=== PATIENT | male | born 1990 | race American Indian/Alaskan Native ===

== ENCOUNTER 2016-07-26 13:14 | Inpatient (IN) | payer OTHER ==
[2016-07-26] MEDS ORDERED: TYLENOL PO ONE (13:27)
[2016-07-26 14:00] LABS: Anion Gap 21 mmol/L; BUN/Creatinine Ratio 14.44; Blood Urea Nitrogen 13 mg/dL (9-20); Calcium 8.2 mg/dL (8.4-10.2); Carbon Dioxide 21 mmol/L (22-30); Chloride 92.7 mmol/L (98-107); Glucose 122 mg/dL (75-100); Potassium 4.5 mmol/L (3.6-5.0); Sodium 130 mmol/L (137-145)
[2016-07-26 14:25] LABS: Hematocrit 40.3 % (35.5-45.6); Hemoglobin 13.4 gm/dl (11.8-15.2); Mean Corpuscular HGB Conc 33 % (32-34); Mean Corpuscular Hemoglobin 27 pg (28-32); Mean Corpuscular Volume 82 fl (84-94); Platelet Count 190 K/mm3 (140-440); Red Cell Distribution Width 14.9 % (13.2-15.2); White Blood Count 18.5 K/mm3 (4.5-11.0)
[2016-07-26] MEDS ORDERED: NACL 0.9% 500 ML 500 ML IV ONE (15:29)
[2016-07-26 15:31] LABS: Basophils % (Manual) 0 % (0.0-1.8); Blastocytes % (Manual) 0 %; Eosinophils % (Manual) 0 % (0.0-4.3)
[2016-07-26 15:32] LABS: Anisocytosis Few; Diff Status Complete
[2016-07-26] MEDS ORDERED: VANCOMYCIN/NS 1 GM/250 ML 1 GM/250 ML BAG IV ONE (16:54)
[2016-07-26] MEDS ORDERED: NACL 0.9% 1000 ML 1,000 ML IV ONE (16:54)
[2016-07-26] MEDS ORDERED: ZOSYN/NS 4.5GM/100ML 4.5 GM/100 ML VIAL IV ONE (16:54)
[2016-07-26] MEDS ORDERED: TORADOL IV ONE (16:55)
[2016-07-26] MEDS ORDERED: MORPHINE IV ONE (16:55)
[2016-07-26] MEDS ORDERED: ZOFRAN IV ONE (16:55)
--- NOTE | 2016-07-26 17:01 | Emergency Department Report ---
ED Fever HPI - General Chief Complaint: Pain General Stated Complaint: BODY ACHES Time Seen by Provider: 07/26/16 16:28 Source: patient Exam Limitations: no limitations - History of Present Illness Initial Comments: 25-year-old male with a past medical history presents to the hospital complaining of fever bodyaches for the past 3-4 days. Patient saw his primary care doctor 2 days ago had a negative flu swab. He continues to have generalized body aches, fevers, and decreased by mouth intake. Yesterday patient developed arthralgias with associated joint redness and swelling which started at his knees but now involves his bilateral wrists, hands, ankles, and feet. Patient denies sore throat. Has mild headache but denies neck stiffness. Also denies cough, dull pain, dysuria, diarrhea, sick contacts, recent travel. 2 episodes of vomiting reported the other day no by mouth intake today. Patient denies IV drug abuse. Patient does engage a homosexual sex with unknown HIV status. ED Review of Systems ROS: Stated complaint: BODY ACHES Other details as noted in HPI Comment: All other systems reviewed and negative Other: Constitutional: As per HPI Eyes: No eye pain visual changes ENT: No ear pain or throat pain Neck: Denies pain Respiratory: Denies cough wheezing shortness of breath Cardiovascular: Denies chest pain, palpitations, syncope GI: Denies abdominal pain, nausea, vomiting, diarrhea : Denies dysuria Musculoskeletal: Denies back pain Skin: Denies rash, lesions, erythema Neurologic: Denies numbness, weakness Psychiatric: Denies suicidal ideation, hallucinations ED Past Medical Hx - Past Medical History Previous Medical History?: No - Surgical History Past Surgical History?: No - Social History Smoking Status: Never Smoker Substance Use Type: Non Opiate Pain - Medications Home Medications: Home Medications Medication Instructions Recorded Confirmed Last Taken Type No Known Home Medications [No 07/26/16 07/26/16 Unknown History Reported Home Medications] ED Physical Exam - General Limitations: No Limitations - Other Other exam information: General: No limitations, patient is alert in no acute distress Head exam: Atraumatic, normocephalic Eyes exam: Normal appearance ENT: Moist mucous membrane, normal oropharynx, no thrush or exudates Neck exam: Normal inspection, full range of motion, no meningismus nontender Respiratory exam: Clear to auscultation bilateral, no wheezes, rales, crackles Cardiovascular: Tachycardic regular rhythm Abdomen: Soft, nondistended, and nontender, with normal bowel sounds, no rebound, or guarding Extremity: Pain and swelling with erythematous and warm areas to bilateral wrists/hands, knees, and feet/ankles. Pain with movement Back: Normal Inspection, full range of motion, no tenderness Neurologic: Alert, oriented x3, cranial nerves intact, no motor or sensory deficit Psychiatric: normal affect, normal mood Skin: Redness and warmth and appears to be cellulitic areas to right wrist, left hand, bilateral knees, ankles and hands ED Course Vital Signs 07/26/16 07/26/16 07/26/16 13:19 13:31 15:20 Temperature 102.6 F H 98.5 F Pulse Rate 107 H 89 Respiratory 18 18 16 Rate Blood Pressure 150/96 Blood Pressure 108/60 [Left] O2 Sat by Pulse 99 98 Oximetry 07/26/16 07/26/16 15:37 16:40 Temperature Pulse Rate 108 H Respiratory 16 16 Rate Blood Pressure Blood Pressure 122/74 [Left] O2 Sat by Pulse 98 98 Oximetry - Reevaluation(s) Reevaluation #1: 07/26/16 17:46 Patient received Tylenol and normal saline 500 mL prior to my evaluation. He remains tachycardic and Creason heart rate was sitting up in bed. 1 L normal saline, morphine, Toradol, and Zofran ordered. Patient will be empirically covered with vancomycin and Zosyn. Blood cultures pending ED Medical Decision Making - Lab Data Result diagrams: 07/26/16 13:30 07/26/16 13:30 Lab Results 07/26/16 07/26/16 Range/Units 13:30 13:30 WBC 18.5 H (4.5-11.0) K/mm3 RBC 4.90 (3.65-5.03) M/mm3 Hgb 13.4 (11.8-15.2) gm/dl Hct 40.3 (35.5-45.6) % MCV 82 L (84-94) fl MCH 27 L (28-32) pg MCHC 33 (32-34) % RDW 14.9 (13.2-15.2) % Plt Count 190 (140-440) K/mm3 Lymph % (Auto) Technical Sales Representative Fajardo % (Auto) Technical Sales Representative Eos % (Auto) Technical Sales Representative Baso % (Auto) Technical Sales Representative Lymph # Technical Sales Representative Fajardo # Technical Sales Representative Eos # Technical Sales Representative Baso # Technical Sales Representative Add Manual Diff Complete Total Counted 100 Seg Neutrophils % Technical Sales Representative Seg Neuts % (Manual) 73.0 H (40.0-70.0) % Band Neutrophils % 16.0 % Lymphocytes % (Manual) 6.0 L (13.4-35.0) % Reactive Lymphs % (Man) 0 % Monocytes % (Manual) 5.0 (0.0-7.3) % Eosinophils % (Manual) 0 (0.0-4.3) % Basophils % (Manual) 0 (0.0-1.8) % Metamyelocytes % 0 % Myelocytes % 0 % Promyelocytes % 0 % Blast Cells % 0 % Nucleated RBC % Not Reportable Seg Neutrophils # Technical Sales Representative Seg Neutrophils # Man 13.5 H (1.8-7.7) K/mm3 Band Neutrophils # 3.0 K/mm3 Lymphocytes # (Manual) 1.1 L (1.2-5.4) K/mm3 Abs React Lymphs (Man) 0.0 K/mm3 Monocytes # (Manual) 0.9 H (0.0-0.8) K/mm3 Eosinophils # (Manual) 0.0 (0.0-0.4) K/mm3 Basophils # (Manual) 0.0 (0.0-0.1) K/mm3 Metamyelocytes # 0.0 K/mm3 Myelocytes # 0.0 K/mm3 Promyelocytes # 0.0 K/mm3 Blast Cells # 0.0 K/mm3 WBC Morphology Not Reportable Hypersegmented Neuts Not Reportable Hyposegmented Neuts Not Reportable Hypogranular Neuts Not Reportable Smudge Cells Not Reportable Toxic Granulation Not Reportable Toxic Vacuolation Not Reportable Dohle Bodies Not Reportable Pelger-Huet Anomaly Not Reportable Ginna Rods Not Reportable Platelet Estimate Not Reportable Clumped Platelets Not Reportable Plt Clumps, EDTA Not Reportable Large Platelets Not Reportable Giant Platelets Not Reportable Platelet Satelliting Not Reportable Plt Morphology Comment Not Reportable RBC Morphology Not Reportable Dimorphic RBCs Not Reportable Polychromasia Not Reportable Hypochromasia Not Reportable Poikilocytosis Not Reportable Anisocytosis Few Microcytosis Not Reportable Macrocytosis Not Reportable Spherocytes Not Reportable Pappenheimer Bodies Not Reportable Sickle Cells Not Reportable Target Cells Not Reportable Tear Drop Cells Not Reportable Ovalocytes Not Reportable Helmet Cells Not Reportable [place] Bodies Not Reportable [place] Rings Not Reportable [place] Cells Not Reportable Bite Cells Not Reportable Crenated Cell Not Reportable Elliptocytes Not Reportable Acanthocytes (Spur) Not Reportable Rouleaux Not Reportable Hemoglobin C Crystals Not Reportable Schistocytes Not Reportable Malaria parasites Not Reportable Uriah Bodies Not Reportable Hem Pathologist Commnt No Sodium 130 L (137-145) mmol/L Potassium 4.5 (3.6-5.0) mmol/L Chloride 92.7 L (98-107) mmol/L Carbon Dioxide 21 L (22-30) mmol/L Anion Gap 21 mmol/L BUN 13 (9-20) mg/dL Creatinine 0.9 (0.8-1.5) mg/dL Estimated GFR > 60 ml/min BUN/Creatinine Ratio 14.44 % Glucose 122 H (75-100) mg/dL Calcium 8.2 L (8.4-10.2) mg/dL - EKG Data -: EKG Interpreted by Me (sinsus tach 109) - EKG Data When compared to previous EKG there are: previous EKG unavailable - Radiology Data Radiology results: image reviewed (chest x-ray PA and lateral: No acute findings ) - Medical Decision Making Plan to admit patient to the hospital with empiric coverage with antibiotics. Patient may benefit from infectious disease consult and HIV testing as well. UA urine culture pending at disposition the patient denies urinary symptoms - Differential Diagnosis HIV, septic arthritis, cellulitis, rheumatic fever, septic emboli Critical Care Time: No Critical care attestation.: If time is entered above; I have spent that time in minutes in the direct care of this critically ill patient, excluding procedure time. ED Disposition Clinical Impression: Fever, Cellulitis of multiple sites, Arthralgia Disposition: OP ADMITTED IP TO THIS HOSP Is pt being admited?: Yes Condition: Stable Time of Disposition: 17:00 (Dr perez/hosp)
--- NOTE | 2016-07-26 18:12 | Admit Criteria Form ---
Admission Criteria Documentation: FEVER Clinical Indications for Inpatient Care (Place 'X' for any and all applicable criteria): Ongoing inpatient care may be indicated for fever with ANY ONE of the following[ D] (5)(27)(28)(29)(30)(31): [ ]I. Bacteremia [ ]II. Evidence of significant systemic illness as indicated by ANY ONE of the following: [ ]a) Persistently high temperatures greater than 103.1 degrees F ( 39.5 degrees C) (oral) [ ]b) New-onset hypoxia [ ]c) Hemodynamic instability [ ]d) Mental status changes [ ]e) Decreased urine output due to developing renal insufficiency [ ]f) New focal neurologic deficit (eg, stroke) [ ]g) Seizures [ ]h) Rigors [ ]i) Dehydration or hypovolemia [ ]j) Inadequate oral intake [ ]III. Patient in the immediate postoperative period with ANY ONE of the following (E)(23)(24): [ ]a) Evidence of specific localizing infection requiring ongoing inpatient evaluation or treatment (eg,abscess, severe pneumonia, wound infection ) [ ]b) Known or suspected cause of fever requiring ongoing inpatient evaluation or treatment (eg, DVT) [ ]c) Evidence of malignant hyperthermia (eg, unexplained tachycardia and muscle rigidity after depolarizing muscular blocking agent or inhaled anesthetic agent) [ X]IV. Suspected cause requiring acute care (eg, endocarditis, meningitis) [ ]V. High suspicion of bacteremia as indicated by severe constitutional symptoms in patient at high risk as indicated by ANY ONE of the following: [ ]a) Immunocompromised state [D](22) [ ]b) Age <3 years or >65 years [ ]c) Severe comorbidities (eg, poorly controlled diabetes, severe COPD) [ ]. High suspicion for fungal infection as indicated by ANY ONE of the following (22)(25): [ ]a) Febrile neutropenia (WBC <500/mm3 (0.5 X 109/L)) for >4 days despite broad spectrum antibiotics [ ]b) Imaging findings suggestive of fungal infection [ ]c) Immunocompromised state [ ]d) Immunocompromised patient colonized with Aspergillus species [ ]VII. Evidence of infection of medical devices such as implanted catheters or exposed hardware [ ]VIII. Suspected neuroleptic malignant syndrome as evidenced by ALL of the following (15): [ ]a) Recent use of neuroleptic medication (eg, haloperidol, prochlorperazine, metoclopramide) [ ]b) New-onset muscle rigidity Extended stay beyond goal length of stay for primary condition may be needed until ALL of the following are present(16)(17)(18)(19)(20)(21): [ ]a) Temperature status acceptable as indicated by ANY ONE of the following: [ ]i) Temp <38.1C (100.5 F) (oral) [ ]ii) Temp as expected for disease process and care performable at next level of care [ ]b) Hemodynamic stability [ ]c) Cultures negative or infection identified and under adequate treatment [ ]d) Behavior or mental status abnormalities absent or manageable at lower level of care (Also use Mental Status Change Criteria Form) for further information. [ ]e) Medical comorbidities absent or manageable at a lower level of care The original [facility] content created by [facility] has been revised. The portions of the content which have been revised are identified through the use of italic text or in bold, and [facility] has neither reviewed nor approved the modified material. All other unmodified content is copyright [facility]. Please see references footnoted in the original [facility] [employer] edition 2016 Admission Criteria Met: Yes
[2016-07-26 18:16] LABS: Bacteria,Urine 1+ /HPF (Negative); Bilirubin,Urine NEG (Negative); Blood,Urine MOD (Negative); Ketones,Urine NEG (Negative); Leukocyte Esterase,Urine NEG (Negative); Nitrite,Urine NEG (Negative); Protein,Urine <15 mg/dL mg/dL (Negative)
--- NOTE | 2016-07-26 18:29 | Event Note ---
Date: 07/26/16 See H/p in reports Disseminated Gonococcal Arthritis a strong possibilty Hiv -rule out Diff Dx Rheumatic fever Ceftriaxone and zithromax
[2016-07-26] MEDS ORDERED: ZOFRAN IV PRN (18:30)
[2016-07-26] MEDS ORDERED: MILK OF MAGNESIA PO PRN (18:30)
[2016-07-26] MEDS ORDERED: DULCOLAX PR PRN (18:30)
[2016-07-26] MEDS ORDERED: D5NS 1,000 ML IV ONE (19:10)
[2016-07-26] MEDS ORDERED: LOVENOX SUB-Q ONE (19:10)
[2016-07-26] MEDS: D5NS 1,000 ML IV SCH (19:23)
[2016-07-26] MEDS: LOVENOX SUB-Q SCH (19:23)
[2016-07-26] MEDS ORDERED: PERCOCET 5/325 ONE (19:52)
[2016-07-26] MEDS: PERCOCET 5/325 PO PRN (19:55)
[2016-07-26 20:43] LABS: HIV-1 Antigen p24 Non React (Non React); HIVR-1/2 Ab Non React (Non React)
[2016-07-27] MEDS: ZOSYN/NS 4.5GM/100ML 4.5 GM/100 ML VIAL IV SCH ×2 (00:37→08:20)
[2016-07-27] MEDS: TYLENOL PO PRN ×3 (01:13→14:49)
[2016-07-27] MEDS ORDERED: ZITHROMAX PO ONE (01:39)
--- NOTE | 2016-07-27 06:01 | History and Physical Report ---
CHIEF COMPLAINT: Fever, joint pains, and rash on the feet and wrists. HISTORY OF PRESENT ILLNESS: The patient is a 25-year-old male with no significant past medical history and history of homosexuality, who comes in for fever and body aches for the past 3 to 4 days. The patient had a negative flu swab 2 days ago. The patient continues to have generalized body ache, especially both knees and ankles and fever and also rash on both the wrists and both the dorsum of the feet. The rash is non-itching, papular rash. Fever off and on. Joint pain severe, especially both the knees. The patient states he had an intercourse about 4-5 months ago, no recent intercourse as per the patient. Question of reliability a remote possibility. No vomiting. No diarrhea. No cough. PAST MEDICAL HISTORY: As mentioned, no significant past medical history. PAST SURGICAL HISTORY: None. SOCIAL HISTORY: Does not smoke. Homosexual. FAMILY HISTORY: No hypertension, no diabetes. REVIEW OF SYSTEMS: GENERAL: No limitations. The patient is alert, in no acute distress. CONSTITUTIONAL: Fever present. No chills. No weight loss or weight gain. HEENT: No sore throat, no postnasal drip. CARDIOVASCULAR AND RESPIRATORY: No shortness of breath. No chest pain. No palpitations. GASTROINTESTINAL: No nausea, no vomiting, no diarrhea. GENITOURINARY: No dysuria. MUSCULOSKELETAL: He has joint pains in both the knees and ankles, especially both the knees, more so in the right knee. CENTRAL NERVOUS SYSTEM: No syncope. No seizures. SKIN: Has rash on the feet and the wrists. PSYCHIATRIC: No suicidal or homicidal ideation. A 14-point review of systems done. PHYSICAL EXAMINATION: GENERAL: Young male, cooperative during the examination. Cheerful. VITAL SIGNS: Temperature is 102.6, pulse is 107, respiratory rate 18, blood pressure 150/96. HEENT: Unremarkable. Pupils equal and reactive. NECK: Supple. No lymphadenopathy. No thyromegaly. LUNGS: Clear to auscultation and percussion. Good air entry. CARDIOVASCULAR: S1, S2 heard. No gallop, no murmur, no rub. Apical impulse in left fifth intercostal space in midclavicular line. ABDOMEN: Soft and benign. No hepatosplenomegaly. No guarding, no rigidity. EXTREMITIES: Redness present on both the feet and the hands. Both the knees are swollen. CENTRAL NERVOUS SYSTEM: Alert and oriented x 4. Nonfocal exam. SKIN: Rash on both the wrists, papular rash, erythematous, 5 x 5 cm. Also, on the dorsum of both the feet, 10 x 5 cm. LABORATORY DATA: Significant for white count of 18,500 and H and H is 13.4 and 40.3. Sodium is 130, potassium is 4.5, chloride is 92.7, and BUN and creatinine 13 and 0.9. Urine is negative for any white cells. HIV is nonreactive. ASSESSMENT AND PLAN: 1. 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 Even though the patient denies recent sex, he might have had sex in the last 10 to 15 days. The symptom complex is consistent with disseminated gonococcal arthritis and because of the involvement of both the knees and ankles and also rash on both the wrists, hands, and on the feet, but no dysuria. We will treat it as a disseminated gonococcal arthritis with IV Rocephin and p.o. azithromycin 1 gram x 1. 2. Systemic inflammatory response syndrome a possibility, but I am more in favor of disseminated gonococcal arthritis. The patient is started on Zosyn empirically. Rocephin 2 grams IV piggyback q.24 and azithromycin 1 gram dose x 1 to cover gonococcal arthritis. 3. Infectious Disease consult requested. 4. Hyponatremia, mild. Should correct with IV fluids. 5. Deep venous thrombosis prophylaxis, Lovenox 40 mg subcutaneous daily. JOB# [id number] VSM/NTS
[2016-07-27 07:46] LABS: Basophils % (Auto) 0.3 % (0.0-1.8); Eosinophils % (Auto) 0.2 % (0.0-4.3); Hematocrit 38.8 % (35.5-45.6); Hemoglobin 12.8 gm/dl (11.8-15.2); Mean Corpuscular HGB Conc 33 % (32-34); Mean Corpuscular Hemoglobin 27 pg (28-32); Mean Corpuscular Volume 82 fl (84-94); Platelet Count 162 K/mm3 (140-440); Red Blood Count 4.73 M/mm3 (3.65-5.03); Red Cell Distribution Width 15.2 % (13.2-15.2); White Blood Count 12.9 K/mm3 (4.5-11.0)
[2016-07-27 07:51] LABS: Alanine Aminotransferase 139 units/L (7-56); Albumin 2.5 g/dL (3.9-5); Albumin/Globulin Ratio 0.7 %; Alkaline Phosphatase 131 units/L (35-129); Anion Gap 18 mmol/L; BUN/Creatinine Ratio 14.44; Blood Urea Nitrogen 13 mg/dL (9-20); Calcium 7.6 mg/dL (8.4-10.2); Carbon Dioxide 24 mmol/L (22-30); Chloride 99.6 mmol/L (98-107); Glucose 120 mg/dL (75-100); Potassium 4.3 mmol/L (3.6-5.0); Sodium 137 mmol/L (137-145); Total Protein 5.9 g/dL (6.3-8.2)
--- NOTE | 2016-07-27 08:44 | XRay Report ---
ROUTINE CHEST, TWO VIEWS: HISTORY: Shortness of breath. The trachea, heart, mediastinal contour, lung ruano and bony thorax are unremarkable. IMPRESSION: Unremarkable chest x-ray.
[2016-07-27] MEDS ORDERED: ROCEPHIN/NS 2 GM/100 ML 2 GM/100 ML BAG IV SCH (10:00)
--- NOTE | 2016-07-27 10:42 | Consultation ---
History of Present Illness - Reason for Consult Consult date: 07/27/16 Fever - History of Present Illness Mr. Finch is a 25-year-old man with no significant medical history who presented with fever, joint swelling and diffuse arthralgias. He says he was well until when he developed maild flu-like symptoms. Two days later he began to have pain in his knee and elbow joints. By 07/25/16 he had joint sweeling and presented for evaluation of this. He denies having a sore throat. He denies IVDU or any use of needles. He was febrile here to >102 deg F. A rapid throat swab for strep A was negative. Blood cultures are positive for Gram positive cocci in chains. Rapid screening for HIV is negative. He is receiving Rocephin and Zosyn empirically. ID is consulted for further management. 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 denies: IV drug use Family history: no significant family history Medications and Allergies Allergies Allergy/AdvReac Type Severity Reaction Status Date / Time No Known Allergies Allergy Unverified 07/26/16 13:19 Home Medications Medication Instructions Recorded Confirmed Last Taken Type No Known Home Medications [No 07/26/16 07/26/16 Unknown History Reported Home Medications] Active Meds: Active Medications Acetaminophen (Tylenol) 650 mg PO Q4H PRN PRN Reason: Pain MILD(1-3)/Fever >100.5/REINOSO Last Admin: 07/27/16 08:18 Dose: 650 mg Bisacodyl (Dulcolax) 10 mg CO QDAY PRN PRN Reason: Constipation unrelieved by MOM Enoxaparin Sodium (Lovenox) 40 mg SUB-Q QDAY ADRIEN Last Admin: 07/26/16 19:23 Dose: 40 mg Dextrose/Sodium Chloride (D5ns) 1,000 mls @ 75 mls/hr IV DIRECT ADRIEN Last Admin: 07/26/16 19:23 Dose: 75 mls/hr Piperacillin Sod/Tazobactam Sod (Zosyn/Ns 4.5gm/100ml) 4.5 gm in 100 mls @ 200 mls/hr IV Q8H ADRIEN PRN Reason: Protocol Last Admin: 07/27/16 08:20 Dose: 200 mls/hr Ceftriaxone Sodium (Rocephin/Ns 2 Gm/100 Ml) 2 gm in 100 mls @ 200 mls/hr IV Q24HR ADRIEN PRN Reason: Protocol Magnesium Hydroxide (Milk Of Magnesia) 30 ml PO Q4H PRN PRN Reason: Constipation Ondansetron HCl (Zofran) 4 mg IV Q8H PRN PRN Reason: N/V unrelieved by Reglan Oxycodone/Acetaminophen (Percocet 5/325) 1 tab PO Q6H PRN PRN Reason: Pain, Moderate (4-6) Last Admin: 07/26/16 19:55 Dose: 1 tab Review of Systems All systems: negative Constitutional: fever, chills, malaise Ears, nose, mouth and throat: no sore throat, no swelling in mouth, no headache Cardiovascular: no chest pain, no palpitations Respiratory: no cough, no cough with sputum, no hemoptysis, no shortness of breath, no congestion Gastrointestinal: no abdominal pain, no nausea, no vomiting, no diarrhea, no constipation Genitourinary Male: no dysuria, no hematuria Musculoskeletal: redness of joints, myalgias, limitation of motion Integumentary: no rash, no pruritis Hematologic/Lymphatic: no lymphadenopathy Physical Examination - Constitutional Vitals: Vital Signs Temp Pulse Resp BP Pulse Ox 100.9 F H 96 H 20 109/62 96 07/27/16 07:47 07/27/16 07:47 07/27/16 07:47 07/27/16 07:47 07/27/16 07:47 Temperature -Last 24 Hours Temperature 100.9 F Temperature 98.6 F Temperature 100.0 F Temperature 99.6 F General appearance: Present: no acute distress - EENT Eyes: Absent: scleral icterus, conjunctival injection - Neck Neck: Present: supple - Respiratory Respiratory effort: normal Respiratory: bilateral: CTA, negative: rales, wheezing - Cardiovascular Rhythm: regular Heart Sounds: Present: S1 & S2 - Extremities Extremities: Full ROM Extremity abnormal: edema (local to wrist and knee joints, no flucutance or ballotment) - Abdominal General gastrointestinal: Present: soft, non-tender, non-distended - Integumentary Integumentary: Absent: jaundice, rash - Neurologic Neurologic: moves all extremities Results - Labs CBC & Chem 7: 07/27/16 06:39 07/27/16 06:39 Labs: Abnormal lab results 07/27/16 07/27/16 Range/Units 06:39 06:39 WBC 12.9 H (4.5-11.0) K/mm3 MCV 82 L (84-94) fl MCH 27 L (28-32) pg Lymph % (Auto) 9.0 L (13.4-35.0) % Mclean % (Auto) 7.9 H (0.0-7.3) % Mclean # 1.0 H (0.0-0.8) K/mm3 Seg Neutrophils % 82.6 H (40.0-70.0) % Seg Neutrophils # 10.6 H (1.8-7.7) K/mm3 Glucose 120 H (75-100) mg/dL Calcium 7.6 L (8.4-10.2) mg/dL AST 112 H (5-40) units/L ALT 139 H (7-56) units/L Alkaline Phosphatase 131 H (35-129) units/L Total Protein 5.9 L (6.3-8.2) g/dL Albumin 2.5 L (3.9-5) g/dL Microbiology 07/26/16 13:51 Peripheral/Venous Blood Culture - Preliminary 07/26/16 13:30 Peripheral/Venous Blood Culture - Preliminary 07/26/16 18:46 Throat Group A Streptococcus Rapid Screen - Negative HIV 1/2 Rapid - Negative - Imaging and Cardiology Chest x-ray: report reviewed (unremarkable) Assessment and Plan - Patient Problems (1) Rheumatic fever Current Visit: Yes Status: Acute Plan to address problem: 1. Probable diagnosis. 2. Change antibiotics to Unasyn. 3. Obtain echocardiogram to rule out vegetations or other valvular pathology. (2) Bacteremia due to Gram-positive bacteria Current Visit: Yes Status: Acute Plan to address problem: 1. Per above. 2. Repeat blood culture to document clearance. Unasyn. (3) High risk sexual behavior Current Visit: Yes Status: Acute Plan to address problem: 1. Screen for syphilis, gonorrhea and hepatitides given rash and sexual history.
[2016-07-27] MEDS: LOVENOX SUB-Q SCH (11:36)
[2016-07-27] MEDS: UNASYN/NS 3 GM/100 ML 3 GM/100 ML BAG IV SCH ×3 (12:02→23:55)
[2016-07-27] MEDS: D5NS 1,000 ML IV SCH (12:25)
--- NOTE | 2016-07-27 12:27 | Progress Note ---
Assessment and Plan Assessment and plan: 25-year-old presents with possible infectious arthritis Total Time Spent with Patient (Minutes): 28 - Patient Problems (1) Elevated liver enzymes Current Visit: Yes Status: Acute Plan to address problem: Issue with elevated liver enzymes in the face of infection and fever and possible disseminated bacteremia. We'll need to rule out acute hepatitis as the etiology we'll also obtain ultrasound of the liver. 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 Being treated with Unasyn. Initial workup of HIV strep and flu virus infections have been negative thus far. Blood cultures are still pending we'll also obtain RPR for syphilis and hepatitis panel acute hepatitis panel. We'll treat with NSAIDs for pain control as well as pain medications. Not sure of steroid- induced so warranted at this point (3) Bacteremia due to Gram-positive bacteria Current Visit: Yes Status: Acute Plan to address problem: Treating with Unasyn await culture data. (4) Fever Current Visit: Yes Status: Acute Qualifiers: Fever type: F Encounter type: E (5) High risk sexual behavior Current Visit: Yes Status: Acute Plan to address problem: Educated on safe sex practices (6) Rheumatic fever Current Visit: Yes Status: Acute History Interval history: Patient today states he feels a little better than yesterday. Still has significant joint pain in hands and knees. Fever curve is coming down. Patient able to eat. Discussion with mother and patient at bedside. All questions and concerns answered to their satisfaction. Hospitalist Physical - Constitutional Vitals: Temp Pulse Resp BP Pulse Ox 99.7 F H 80 20 98/51 98 07/27/16 12:00 07/27/16 12:00 07/27/16 12:00 07/27/16 12:07/27/16 12:00 General appearance: Present: no acute distress - EENT Eyes: Present: PERRL, EOM intact ENT: hearing intact, clear oral mucosa, dentition normal - Neck Neck: Present: supple, normal ROM - Respiratory Respiratory effort: normal Respiratory: bilateral: CTA - Cardiovascular Rhythm: regular Heart Sounds: Present: S1 & S2 - Extremities Extremities: no ischemia, pulses intact, pulses symmetrical, No edema Extremity abnormal: other (patient has erythema edema around metacarpal phalangeal joints DIPJ and proximal phalangeal joints on both hands wrist also swelling and erythema in knees and the dorsal aspect of feet painful tender with decreased range of motion) - Abdominal General gastrointestinal: soft, non-tender, non-distended - Integumentary Integumentary: Present: warm, erythema - Psychiatric Psychiatric: appropriate mood/affect, cooperative - Neurologic Neurologic: CNII-XII intact, moves all extremities, gait normal Results - Labs CBC & Chem 7: 07/27/16 06:39 07/27/16 06:39 Labs: Laboratory Last Values WBC 12.9 K/mm3 (4.5-11.0) H 07/27/16 06:39 RBC 4.73 M/mm3 (3.65-5.03) 07/27/16 06:39 Hgb 12.8 gm/dl (11.8-15.2) 07/27/16 06:39 Hct 38.8 % (35.5-45.6) 07/27/16 06:39 MCV 82 fl (84-94) L 07/27/16 06:39 MCH 27 pg (28-32) L 07/27/16 06:39 MCHC 33 % (32-34) 07/27/16 06:39 RDW 15.2 % (13.2-15.2) 07/27/16 06:39 Plt Count 162 K/mm3 (140-440) 07/27/16 06:39 Lymph % (Auto) 9.0 % (13.4-35.0) L 07/27/16 06:39 [place] % (Auto) 7.9 % (0.0-7.3) H 07/27/16 06:39 Eos % (Auto) 0.2 % (0.0-4.3) 07/27/16 06:39 Baso % (Auto) 0.3 % (0.0-1.8) 07/27/16 06:39 Lymph # 1.2 K/mm3 (1.2-5.4) 07/27/16 06:39 [place] # 1.0 K/mm3 (0.0-0.8) H 07/27/16 06:39 Eos # 0.0 K/mm3 (0.0-0.4) 07/27/16 06:39 Baso # 0.0 K/mm3 (0.0-0.1) 07/27/16 06:39 Add Manual Diff Complete 07/26/16 13:30 Total Counted 100 07/26/16 13:30 Seg Neutrophils % 82.6 % (40.0-70.0) H 07/27/16 06:39 Seg Neuts % (Manual) 73.0 % (40.0-70.0) H 07/26/16 13:30 Band Neutrophils % 16.0 % 07/26/16 13:30 Lymphocytes % (Manual) 6.0 % (13.4-35.0) L 07/26/16 13:30 Reactive Lymphs % (Man) 0 % 07/26/16 13:30 Monocytes % (Manual) 5.0 % (0.0-7.3) 07/26/16 13:30 Eosinophils % (Manual) 0 % (0.0-4.3) 07/26/16 13:30 Basophils % (Manual) 0 % (0.0-1.8) 07/26/16 13:30 Metamyelocytes % 0 % 07/26/16 13:30 Myelocytes % 0 % 07/26/16 13:30 Promyelocytes % 0 % 07/26/16 13:30 Blast Cells % 0 % 07/26/16 13:30 Nucleated RBC % Not Reportable 07/26/16 13:30 Seg Neutrophils # 10.6 K/mm3 (1.8-7.7) H 07/27/16 06:39 Seg Neutrophils # Man 13.5 K/mm3 (1.8-7.7) H 07/26/16 13:30 Band Neutrophils # 3.0 K/mm3 07/26/16 13:30 Lymphocytes # (Manual) 1.1 K/mm3 (1.2-5.4) L 07/26/16 13:30 Abs React Lymphs (Man) 0.0 K/mm3 07/26/16 13:30 Monocytes # (Manual) 0.9 K/mm3 (0.0-0.8) H 07/26/16 13:30 Eosinophils # (Manual) 0.0 K/mm3 (0.0-0.4) 07/26/16 13:30 Basophils # (Manual) 0.0 K/mm3 (0.0-0.1) 07/26/16 13:30 Metamyelocytes # 0.0 K/mm3 07/26/16 13:30 Myelocytes # 0.0 K/mm3 07/26/16 13:30 Promyelocytes # 0.0 K/mm3 07/26/16 13:30 Blast Cells # 0.0 K/mm3 07/26/16 13:30 WBC Morphology Not Reportable 07/26/16 13:30 Hypersegmented Neuts Not Reportable 07/26/16 13:30 Hyposegmented Neuts Not Reportable 07/26/16 13:30 Hypogranular Neuts Not Reportable 07/26/16 13:30 Smudge Cells Not Reportable 07/26/16 13:30 Toxic Granulation Not Reportable 07/26/16 13:30 Toxic Vacuolation Not Reportable 07/26/16 13:30 Dohle Bodies Not Reportable 07/26/16 13:30 Pelger-Huet Anomaly Not Reportable 07/26/16 13:30 Ginna Rods Not Reportable 07/26/16 13:30 Platelet Estimate Not Reportable 07/26/16 13:30 Clumped Platelets Not Reportable 07/26/16 13:30 Plt Clumps, EDTA Not Reportable 07/26/16 13:30 Large Platelets Not Reportable 07/26/16 13:30 Giant Platelets Not Reportable 07/26/16 13:30 Platelet Satelliting Not Reportable 07/26/16 13:30 Plt Morphology Comment Not Reportable 07/26/16 13:30 RBC Morphology Not Reportable 07/26/16 13:30 Dimorphic RBCs Not Reportable 07/26/16 13:30 Polychromasia Not Reportable 07/26/16 13:30 Hypochromasia Not Reportable 07/26/16 13:30 Poikilocytosis Not Reportable 07/26/16 13:30 Anisocytosis Few 07/26/16 13:30 Microcytosis Not Reportable 07/26/16 13:30 Macrocytosis Not Reportable 07/26/16 13:30 Spherocytes Not Reportable 07/26/16 13:30 Pappenheimer Bodies Not Reportable 07/26/16 13:30 Sickle Cells Not Reportable 07/26/16 13:30 Target Cells Not Reportable 07/26/16 13:30 Tear Drop Cells Not Reportable 07/26/16 13:30 Ovalocytes Not Reportable 07/26/16 13:30 Helmet Cells Not Reportable 07/26/16 13:30 Post-[place] Bodies Not Reportable 07/26/16 13:30 [place] Rings Not Reportable 07/26/16 13:30 [place] Cells Not Reportable 07/26/16 13:30 Bite Cells Not Reportable 07/26/16 13:30 Crenated Cell Not Reportable 07/26/16 13:30 Elliptocytes Not Reportable 07/26/16 13:30 Acanthocytes (Spur) Not Reportable 07/26/16 13:30 Rouleaux Not Reportable 07/26/16 13:30 Hemoglobin C Crystals Not Reportable 07/26/16 13:30 Schistocytes Not Reportable 07/26/16 13:30 Malaria parasites Not Reportable 07/26/16 13:30 Uriah Bodies Not Reportable 07/26/16 13:30 Hem Pathologist Commnt No 07/26/16 13:30 Sodium 137 mmol/L (137-145) D 07/27/16 06:39 Potassium 4.3 mmol/L (3.6-5.0) 07/27/16 06:39 Chloride 99.6 mmol/L (98-107) 07/27/16 06:39 Carbon Dioxide 24 mmol/L (22-30) 07/27/16 06:39 Anion Gap 18 mmol/L 07/27/16 06:39 BUN 13 mg/dL (9-20) 07/27/16 06:39 Creatinine 0.9 mg/dL (0.8-1.5) 07/27/16 06:39 Estimated GFR > 60 ml/min 07/27/16 06:39 BUN/Creatinine Ratio 14.44 % 07/27/16 06:39 Glucose 120 mg/dL (75-100) H 07/27/16 06:39 Calcium 7.6 mg/dL (8.4-10.2) L 07/27/16 06:39 Total Bilirubin 1.10 mg/dL (0.1-1.2) 07/27/16 06:39 AST 112 units/L (5-40) H 07/27/16 06:39 ALT 139 units/L (7-56) H 07/27/16 06:39 Alkaline Phosphatase 131 units/L (35-129) H 07/27/16 06:39 Total Protein 5.9 g/dL (6.3-8.2) L 07/27/16 06:39 Albumin 2.5 g/dL (3.9-5) L 07/27/16 06:39 Albumin/Globulin Ratio 0.7 % 07/27/16 06:39 Urine Color Yellow (Yellow) 07/26/16 17:47 Urine Turbidity Clear (Clear) 07/26/16 17:47 Urine pH 6.0 (5.0-7.0) 07/26/16 17:47 Ur Specific [place] 1.005 (1.003-1.030) 07/26/16 17:47 Urine Protein <15 mg/dl mg/dL (Negative) 07/26/16 17:47 Urine Glucose (UA) Neg mg/dL (Negative) 07/26/16 17:47 Urine Ketones Neg mg/dL (Negative) 07/26/16 17:47 Urine Blood Mod (Negative) 07/26/16 17:47 Urine Nitrite Neg (Negative) 07/26/16 17:47 Urine Bilirubin Neg (Negative) 07/26/16 17:47 Urine Urobilinogen 2.0 mg/dL (<2.0) 07/26/16 17:47 Ur Leukocyte Esterase Neg (Negative) 07/26/16 17:47 Urine WBC (Auto) 1.0 /HPF (0.0-6.0) 07/26/16 17:47 Urine RBC (Auto) 1.0 /HPF (0.0-6.0) 07/26/16 17:47 Urine Bacteria (Auto) 1+ /HPF (Negative) 07/26/16 17:47 HIV 1&2 Antibody Rapid Non react (Non React) 07/26/16 19:15 HIV P24 Antigen Non react (Non React) 07/26/16 19:15 - Imaging and Cardiology Chest x-ray: image reviewed
[2016-07-27] MEDS: PERCOCET 5/325 PO PRN (20:33)
[2016-07-28] MEDS: TYLENOL PO PRN (03:32)
[2016-07-28] MEDS: UNASYN/NS 3 GM/100 ML 3 GM/100 ML BAG IV SCH ×2 (05:26→12:06)
--- NOTE | 2016-07-28 07:34 | Ultrasound Report ---
ULTRASOUND ABDOMEN COMPLETE: Technique: Transabdominal ultrasound with color Doppler interrogation. History: Elevated liver enzymes. Findings: The liver is normal size, contour and echotexture. No surface nodularity, parenchymal disease or suspicious liver mass is appreciated. The gallbladder dimensions are within normal limits without intraluminal stone, wall thickening, or pericholecystic fluid. The CBD measures 3 mm. The visualized portions of the pancreas including the head and proximal body are within normal limits. Both kidneys are normal size and position measuring approximately 12 cm. There is increased renal parenchymal echotexture bilaterally consistent with medical renal disease. No evidence for nephrolithiasis, focal renal lesion or hydronephrosis. The spleen and aorta are within normal limits. No aneurysmal dilatation is noted. There is trace perihepatic and perisplenic ascites and trace right pleural effusion. IMPRESSION: The liver and biliary system are essentially unremarkable on ultrasound. Medical renal disease. Trace ascites and right pleural effusion.
[2016-07-28 07:57] LABS: Basophils % (Auto) 0.3 % (0.0-1.8); Eosinophils % (Auto) 0.4 % (0.0-4.3); Hematocrit 37.7 % (35.5-45.6); Hemoglobin 12.4 gm/dl (11.8-15.2); Mean Corpuscular HGB Conc 33 % (32-34); Mean Corpuscular Hemoglobin 27 pg (28-32); Mean Corpuscular Volume 83 fl (84-94); Platelet Count 201 K/mm3 (140-440); Red Blood Count 4.57 M/mm3 (3.65-5.03); White Blood Count 17.7 K/mm3 (4.5-11.0)
[2016-07-28 08:02] LABS: Anion Gap 17 mmol/L; BUN/Creatinine Ratio 8.88; Blood Urea Nitrogen 8 mg/dL (9-20); Calcium 7.8 mg/dL (8.4-10.2); Carbon Dioxide 24 mmol/L (22-30); Chloride 100.6 mmol/L (98-107); Glucose 108 mg/dL (75-100); Potassium 4.1 mmol/L (3.6-5.0); Sodium 137 mmol/L (137-145)
[2016-07-28] MEDS: PERCOCET 5/325 PO PRN ×2 (08:52→20:50)
--- NOTE | 2016-07-28 10:25 | Progress Note ---
Assessment and Plan Assessment and plan: --Febrile illness Secondary to sepsis, hep C positive state as well as rheumatic fever Supportive care, continue antibiotics recommended by ID --Sepsis secondary to gram-positive bacteremia On Unasyn, ID changed to Rocephin and gentamicin Closely monitor, follow sensitivity Patient will be discharged on oral Levaquin when stable Antibiotics until 08/11/2016 per ID --Hepatitis C positive status Patient has history of IV drug use Follow hepatitis C viral load, supportive care, ID following --Rheumatic fever; Continue current antibiotics: Negative for vegetations --High risk sexual behavior Workup is in progress, ID following, --DVT prophylaxis with Lovenox Will closely monitor the patient and adjust the management as needed Plan of care discussed with the patient as well as his nurse Consults and recommendations noted and appreciated History Interval history: Patient seen and evaluated in his room this morning Medical records reviewed, remains febrile, MAXIMUM TEMPERATURE 101.2 Complains of generalized weakness Alert awake oriented 3 not in acute distress Hospitalist Physical - Constitutional Vitals: Temp Pulse Resp BP Pulse Ox 100.0 F H 68 18 120/66 97 07/28/16 08:00 07/28/16 08:00 07/28/16 08:00 07/28/16 08:00 07/28/16 08:00 General appearance: Present: no acute distress, cachectic, other (febrile) - EENT Eyes: Present: PERRL, EOM intact - Neck Neck: Present: supple, normal ROM - Respiratory Respiratory effort: normal Respiratory: negative: rales, rhonchi, wheezing - Cardiovascular Rhythm: regular Heart Sounds: Present: S1 & S2 - Extremities Extremities: no ischemia, pulses intact, pulses symmetrical Peripheral Pulses: within normal limits - Abdominal General gastrointestinal: soft, non-tender, non-distended, normal bowel sounds - Integumentary Integumentary: Present: clear, warm - Psychiatric Psychiatric: appropriate mood/affect, cooperative - Neurologic Neurologic: CNII-XII intact, moves all extremities Results - Labs CBC & Chem 7: 07/28/16 07:23 07/28/16 07:23 Labs: Laboratory Last Values WBC 17.7 K/mm3 (4.5-11.0) H 07/28/16 07:23 RBC 4.57 M/mm3 (3.65-5.03) 07/28/16 07:23 Hgb 12.4 gm/dl (11.8-15.2) 07/28/16 07:23 Hct 37.7 % (35.5-45.6) 07/28/16 07:23 MCV 83 fl (84-94) L 07/28/16 07:23 MCH 27 pg (28-32) L 07/28/16 07:23 MCHC 33 % (32-34) 07/28/16 07:23 RDW 15.0 % (13.2-15.2) 07/28/16 07:23 Plt Count 201 K/mm3 (140-440) 07/28/16 07:23 Lymph % (Auto) 11.4 % (13.4-35.0) L 07/28/16 07:23 [place] % (Auto) 6.9 % (0.0-7.3) 07/28/16 07:23 Eos % (Auto) 0.4 % (0.0-4.3) 07/28/16 07: Baso % (Auto) 0.3 % (0.0-1.8) 07/28/16 07:23 Lymph # 2.0 K/mm3 (1.2-5.4) 07/28/16 07:23 [place] # 1.2 K/mm3 (0.0-0.8) H 07/28/16 07:23 Eos # 0.1 K/mm3 (0.0-0.4) 07/28/16 07:23 Baso # 0.0 K/mm3 (0.0-0.1) 07/28/16 07:23 Add Manual Diff Complete 07/26/16 13:30 Total Counted 100 07/26/16 13:30 Seg Neutrophils % 81.0 % (40.0-70.0) H 07/28/16 07:23 Seg Neuts % (Manual) 73.0 % (40.0-70.0) H 07/26/16 13:30 Band Neutrophils % 16.0 % 07/26/16 13:30 Lymphocytes % (Manual) 6.0 % (13.4-35.0) L 07/26/16 13:30 Reactive Lymphs % (Man) 0 % 07/26/16 13:30 Monocytes % (Manual) 5.0 % (0.0-7.3) 07/26/16 13:30 Eosinophils % (Manual) 0 % (0.0-4.3) 07/26/16 13:30 Basophils % (Manual) 0 % (0.0-1.8) 07/26/16 13:30 Metamyelocytes % 0 % 07/26/16 13:30 Myelocytes % 0 % 07/26/16 13:30 Promyelocytes % 0 % 07/26/16 13:30 Blast Cells % 0 % 07/26/16 13:30 Nucleated RBC % Not Reportable 07/26/16 13:30 Seg Neutrophils # 14.3 K/mm3 (1.8-7.7) H 07/28/16 07:23 Seg Neutrophils # Man 13.5 K/mm3 (1.8-7.7) H 07/26/16 13:30 Band Neutrophils # 3.0 K/mm3 07/26/16 13:30 Lymphocytes # (Manual) 1.1 K/mm3 (1.2-5.4) L 07/26/16 13:30 Abs React Lymphs (Man) 0.0 K/mm3 07/26/16 13:30 Monocytes # (Manual) 0.9 K/mm3 (0.0-0.8) H 07/26/16 13:30 Eosinophils # (Manual) 0.0 K/mm3 (0.0-0.4) 07/26/16 13:30 Basophils # (Manual) 0.0 K/mm3 (0.0-0.1) 07/26/16 13:30 Metamyelocytes # 0.0 K/mm3 07/26/16 13:30 Myelocytes # 0.0 K/mm3 07/26/16 13:30 Promyelocytes # 0.0 K/mm3 07/26/16 13:30 Blast Cells # 0.0 K/mm3 07/26/16 13:30 WBC Morphology Not Reportable 07/26/16 13:30 Hypersegmented Neuts Not Reportable 07/26/16 13:30 Hyposegmented Neuts Not Reportable 07/26/16 13:30 Hypogranular Neuts Not Reportable 07/26/16 13:30 Smudge Cells Not Reportable 07/26/16 13:30 Toxic Granulation Not Reportable 07/26/16 13:30 Toxic Vacuolation Not Reportable 07/26/16 13:30 Dohle Bodies Not Reportable 07/26/16 13:30 Pelger-Huet Anomaly Not Reportable 07/26/16 13:30 Ginna Rods Not Reportable 07/26/16 13:30 Platelet Estimate Not Reportable 07/26/16 13:30 Clumped Platelets Not Reportable 07/26/16 13:30 Plt Clumps, EDTA Not Reportable 07/26/16 13:30 Large Platelets Not Reportable 07/26/16 13:30 Giant Platelets Not Reportable 07/26/16 13:30 Platelet Satelliting Not Reportable 07/26/16 13:30 Plt Morphology Comment Not Reportable 07/26/16 13:30 RBC Morphology Not Reportable 07/26/16 13:30 Dimorphic RBCs Not Reportable 07/26/16 13:30 Polychromasia Not Reportable 07/26/16 13:30 Hypochromasia Not Reportable 07/26/16 13:30 Poikilocytosis Not Reportable 07/26/16 13:30 Anisocytosis Few 07/26/16 13:30 Microcytosis Not Reportable 07/26/16 13:30 Macrocytosis Not Reportable 07/26/16 13:30 Spherocytes Not Reportable 07/26/16 13:30 Pappenheimer Bodies Not Reportable 07/26/16 13:30 Sickle Cells Not Reportable 07/26/16 13:30 Target Cells Not Reportable 07/26/16 13:30 Tear Drop Cells Not Reportable 07/26/16 13:30 Ovalocytes Not Reportable 07/26/16 13:30 Helmet Cells Not Reportable 07/26/16 13:30 Post-[place] Bodies Not Reportable 07/26/16 13:30 [place] Rings Not Reportable 07/26/16 13:30 [place] Cells Not Reportable 07/26/16 13:30 Bite Cells Not Reportable 07/26/16 13:30 Crenated Cell Not Reportable 07/26/16 13:30 Elliptocytes Not Reportable 07/26/16 13:30 Acanthocytes (Spur) Not Reportable 07/26/16 13:30 Rouleaux Not Reportable 07/26/16 13:30 Hemoglobin C Crystals Not Reportable 07/26/16 13:30 Schistocytes Not Reportable 07/26/16 13:30 Malaria parasites Not Reportable 07/26/16 13:30 Uriah Bodies Not Reportable 07/26/16 13:30 Hem Pathologist Commnt No 07/26/16 13:30 Sodium 137 mmol/L (137-145) 07/28/16 07:23 Potassium 4.1 mmol/L (3.6-5.0) 07/28/16 07:23 Chloride 100.6 mmol/L (98-107) 07/28/16 07:23 Carbon Dioxide 24 mmol/L (22-30) 07/28/16 07:23 Anion Gap 17 mmol/L 07/28/16 07:23 BUN 8 mg/dL (9-20) L 07/28/16 07:23 Creatinine 0.9 mg/dL (0.8-1.5) 07/28/16 07:23 Estimated GFR > 60 ml/min 07/28/16 07:23 BUN/Creatinine Ratio 8.88 % 07/28/16 07:23 Glucose 108 mg/dL (75-100) H 07/28/16 07:23 Calcium 7.8 mg/dL (8.4-10.2) L 07/28/16 07:23 Total Bilirubin 1.10 mg/dL (0.1-1.2) 07/27/16 06:39 AST 112 units/L (5-40) H 07/27/16 06:39 ALT 139 units/L (7-56) H 07/27/16 06:39 Alkaline Phosphatase 131 units/L (35-129) H 07/27/16 06:39 Total Protein 5.9 g/dL (6.3-8.2) L 07/27/16 06:39 Albumin 2.5 g/dL (3.9-5) L 07/27/16 06:39 Albumin/Globulin Ratio 0.7 % 07/27/16 06:39 Urine Color Yellow (Yellow) 07/26/16 17:47 Urine Turbidity Clear (Clear) 07/26/16 17:47 Urine pH 6.0 (5.0-7.0) 07/26/16 17:47 Ur Specific [place] 1.005 (1.003-1.030) 07/26/16 17:47 Urine Protein <15 mg/dl mg/dL (Negative) 07/26/16 17:47 Urine Glucose (UA) Neg mg/dL (Negative) 07/26/16 17:47 Urine Ketones Neg mg/dL (Negative) 07/26/16 17:47 Urine Blood Mod (Negative) 07/26/16 17:47 Urine Nitrite Neg (Negative) 07/26/16 17:47 Urine Bilirubin Neg (Negative) 07/26/16 17:47 Urine Urobilinogen 2.0 mg/dL (<2.0) 07/26/16 17:47 Ur Leukocyte Esterase Neg (Negative) 07/26/16 17:47 Urine WBC (Auto) 1.0 /HPF (0.0-6.0) 07/26/16 17:47 Urine RBC (Auto) 1.0 /HPF (0.0-6.0) 07/26/16 17:47 Urine Bacteria (Auto) 1+ /HPF (Negative) 07/26/16 17:47 Hep Bs Antigen Non-reactive (Negative) 07/27/16 11:46 Hepatitis C Antibody Reactive (NonReactive) 07/27/16 11:46 HIV 1&2 Antibody Rapid Non react (Non React) 07/26/16 19:15 HIV P24 Antigen Non react (Non React) 07/26/16 19:15
[2016-07-28] MEDS: LOVENOX SUB-Q SCH (10:54)
--- NOTE | 2016-07-28 13:48 | Progress Note ---
Assessment and Plan - Patient Problems (1) Bacteremia due to Gram-positive bacteria Current Visit: Yes Status: Acute Plan to address problem: Currently on Unasyn. Will change to Rocephin and Gentamicin. Await results of repeat blood culture. Oral Levaquin 750mg PO daily will be a fesible option for this patient when he is ready for discharge. Continuing antibiotics through August 11, 2016, at minimum. (2) Rheumatic fever Current Visit: Yes Status: Acute Plan to address problem: Per above. Patient is on antimicrobial treatment. No features on recent echo. (3) Hepatitis C antibody positive in blood Current Visit: Yes Status: Acute Plan to address problem: Evidence of hepatitis C exposure (? IVDU history) Will check HCV viral load (and genotype) to confirm infection. This may be the early stages of an acute HCV infection. Follow clinically for now. (4) High risk sexual behavior Current Visit: Yes Status: Acute Plan to address problem: Await additional STI screening results. Subjective Date of service: 07/28/16 Interval history: No new complaints. Joint swelling is unchanged. Objective - Constitutional Vitals: Vital Signs Temp Pulse Resp BP Pulse Ox 100.0 F H 68 18 120/66 97 07/28/16 08:00 07/28/16 08:00 07/28/16 08:00 07/28/16 08:00 07/28/16 08:00 Temperature -Last 24 Hours Temperature 100.0 F Temperature 99.2 F Temperature 100.8 F Temperature 100.7 F Temperature 100.5 F Temperature 101.2 F General appearance: Present: other (appears acutely ill, non-toxic) - EENT Eyes: no scleral icterus, no conjunctival injection ENT: clear oral mucosa - Neck Neck: supple - Respiratory Respiratory effort: normal Respiratory: bilateral: CTA - Cardiovascular Rhythm: regular Heart Sounds: Present: S1 & S2. Absent: systolic murmur Extremities: abnormal (marked erythema and edema at left wrist joint, also less so on wrists and ankles bilaterally; joints have increased local warmth, no fluctuance) Extremity abnormal: erythema - Gastrointestinal General gastrointestinal: Present: soft, non-distended - Genitourinary Male genitourinary: normal - Integumentary Integumentary: no jaundice, no rash - Neurologic Neurologic: moves all extremities - Psychiatric Psychiatric: appropriate mood/affect - Labs CBC & Chem 7: 07/28/16 07:23 07/28/16 07:23 Labs: Microbiology 07/26/16 17:47 Urine,Clean Catch Urine Culture - Final 07/26/16 18:46 Throat Group A Streptococcus Rapid Screen - Final 07/26/16 18:46 Throat Group A Strep Throat Culture - Final 07/26/16 13:51 Peripheral/Venous Blood Culture - Preliminary Beta Hemolytic Strep Group A 07/26/16 13:30 Peripheral/Venous Blood Culture - Preliminary Beta Hemolytic Strep Group A 07/28/16 00:42 Peripheral/Venous Blood Culture - Preliminary Culture in Progress 07/27/16 11:46 Peripheral/Venous Blood Culture - Preliminary Culture in Progress Abnormal Lab Results 07/27/16 07/27/16 07/28/16 11:46 11:46 07:23 WBC 17.7 H RBC 4.57 Hgb 12.4 Hct 37.7 MCV 83 L MCH 27 L MCHC 33 RDW 15.0 Plt Count 201 Lymph % (Auto) 11.4 L [place] % (Auto) 6.9 Eos % (Auto) 0.4 Baso % (Auto) 0.3 Lymph # 2.0 [place] # 1.2 H Eos # 0.1 Baso # 0.0 Seg Neutrophils % 81.0 H Seg Neutrophils # 14.3 H Sodium Potassium Chloride Carbon Dioxide Anion Gap BUN Creatinine Estimated GFR BUN/Creatinine Ratio Glucose Calcium Hep Bs Antigen Non-reactive Hepatitis C Antibody Reactive 07/28/16 07:23 WBC RBC Hgb Hct MCV MCH MCHC RDW Plt Count Lymph % (Auto) [place] % (Auto) Eos % (Auto) Baso % (Auto) Lymph # [place] # Eos # Baso # Seg Neutrophils % Seg Neutrophils # Sodium 137 Potassium 4.1 Chloride 100.6 Carbon Dioxide 24 Anion Gap 17 BUN 8 L Creatinine 0.9 Estimated GFR > 60 BUN/Creatinine Ratio 8.88 Glucose 108 H Calcium 7.8 L Hep Bs Antigen Hepatitis C Antibody Active Medications Acetaminophen (Tylenol) 650 mg PO Q4H PRN PRN Reason: Pain MILD(1-3)/Fever >100.5/REINOSO Last Admin: 07/28/16 03:32 Dose: 650 mg Bisacodyl (Dulcolax) 10 mg ND QDAY PRN PRN Reason: Constipation unrelieved by MOM Enoxaparin Sodium (Lovenox) 40 mg SUB-Q QDAY ADRIEN Last Admin: 07/28/16 10:54 Dose: 40 mg Dextrose/Sodium Chloride (D5ns) 1,000 mls @ 75 mls/hr IV DIRECT ADRIEN Last Admin: 07/27/16 12:25 Dose: 75 mls/hr Ampicillin Sodium/Sulbactam Sodium (Unasyn/Ns 3 Gm/100 Ml) 3 gm in 100 mls @ 100 mls/hr IV Q6HR ADRIEN PRN Reason: Protocol Last Admin: 07/28/16 12:06 Dose: 100 mls/hr Magnesium Hydroxide (Milk Of Magnesia) 30 ml PO Q4H PRN PRN Reason: Constipation Ondansetron HCl (Zofran) 4 mg IV Q8H PRN PRN Reason: N/V unrelieved by Reglan Oxycodone/Acetaminophen (Percocet 5/325) 1 tab PO Q6H PRN PRN Reason: Pain, Moderate (4-6) Last Admin: 07/28/16 08:52 Dose: 1 tab - Imaging and cardiology US - abdomen: report reviewed (unremarkable biliary tree; trace ascites) Other: report reviewed (echo with EF 40-45%, no vegetations seen)
[2016-07-28] MEDS: ROCEPHIN/NS 2 GM/100 ML 2 GM/100 ML BAG IV SCH (16:44)
[2016-07-28] MEDS ORDERED: GARAMYCIN 200 MG in NACL 0.9% 100 ML IV SCH (17:00)
[2016-07-28] MEDS ORDERED: GARAMYCIN/NS 120MG/100ML 120 MG/100 ML BAG IV ONE (18:00)
[2016-07-28] MEDS: D5NS 1,000 ML IV SCH (18:29)
[2016-07-29 07:44] LABS: Anion Gap 17 mmol/L; Blood Urea Nitrogen 8 mg/dL (9-20); Calcium 8.4 mg/dL (8.4-10.2); Carbon Dioxide 24 mmol/L (22-30); Glucose 114 mg/dL (75-100); Potassium 4.3 mmol/L (3.6-5.0); Sodium 138 mmol/L (137-145)
[2016-07-29] MEDS: PERCOCET 5/325 PO PRN ×2 (07:46→15:18)
--- NOTE | 2016-07-29 08:46 | Progress Note ---
Assessment and Plan Assessment and plan: --Febrile illness Secondary to sepsis, hep C positive, as well as rheumatic fever Supportive care, continue antibiotics recommended by ID --Sepsis secondary to gram-positive bacteremia On Unasyn, ID changed to Rocephin and gentamicin Closely monitor, follow sensitivity Patient will be discharged on oral Levaquin when stable Antibiotics until 08/11/2016 per ID --Hepatitis C positive status Patient has history of IV drug use Follow hepatitis C viral load, supportive care, ID following --Rheumatic fever; Continue current antibiotics: Negative for vegetations --High risk sexual behavior Workup is in progress, ID following, --DVT prophylaxis with Lovenox Will closely monitor the patient and adjust the management as needed Plan of care discussed with the patient as well as his nurse Consults and recommendations noted and appreciated History Interval history: Patient seen and evaluated in his room this morning medical records reviewed Patient has intermittent fevers MAXIMUM TEMPERATURE 102 Complaints of left hand swelling and pain Denies any chest pain or shortness of breath alert awake oriented 3 not in acute distress Vital signs reviewed Hospitalist Physical - Constitutional Vitals: Temp Pulse Resp BP Pulse Ox 99.6 F 75 20 119/75 96 07/29/16 04:00 07/29/16 04:00 07/29/16 04:00 07/29/16 04:00 07/29/16 04:00 General appearance: Present: no acute distress, cachectic, other (febrile) - EENT Eyes: Present: PERRL, EOM intact - Neck Neck: Present: supple, normal ROM - Respiratory Respiratory effort: normal Respiratory: bilateral: diminished, negative: rales, rhonchi, wheezing - Cardiovascular Rhythm: regular Heart Sounds: Present: S1 & S2 - Extremities Extremities: no ischemia, pulses intact, pulses symmetrical, abnormal (left hand swelling) Extremity abnormal: edema - Abdominal General gastrointestinal: soft, non-tender, non-distended, normal bowel sounds - Integumentary Integumentary: Present: clear, warm - Psychiatric Psychiatric: appropriate mood/affect, cooperative - Neurologic Neurologic: CNII-XII intact, moves all extremities Results - Labs CBC & Chem 7: 07/28/16 07:23 07/29/16 06:50 Labs: Laboratory Last Values WBC 17.7 K/mm3 (4.5-11.0) H 07/28/16 07:23 RBC 4.57 M/mm3 (3.65-5.03) 07/28/16 07:23 Hgb 12.4 gm/dl (11.8-15.2) 07/28/16 07:23 Hct 37.7 % (35.5-45.6) 07/28/16 07:23 MCV 83 fl (84-94) L 07/28/16 07:23 MCH 27 pg (28-32) L 07/28/16 07:23 MCHC 33 % (32-34) 07/28/16 07:23 RDW 15.0 % (13.2-15.2) 07/28/16 07:23 Plt Count 201 K/mm3 (140-440) 07/28/16 07:23 Lymph % (Auto) 11.4 % (13.4-35.0) L 07/28/16 07:23 [place] % (Auto) 6.9 % (0.0-7.3) 07/28/16 07:23 Eos % (Auto) 0.4 % (0.0-4.3) 07/28/16 07:23 Baso % (Auto) 0.3 % (0.0-1.8) 07/28/16 07:23 Lymph # 2.0 K/mm3 (1.2-5.4) 07/28/16 07:23 [place] # 1.2 K/mm3 (0.0-0.8) H 07/28/16 07:23 Eos # 0.1 K/mm3 (0.0-0.4) 07/28/16 07:23 Baso # 0.0 K/mm3 (0.0-0.1) 07/28/16 07:23 Add Manual Diff Complete 07/26/16 13:30 Total Counted 100 07/26/16 13:30 Seg Neutrophils % 81.0 % (40.0-70.0) H 07/28/16 07:23 Seg Neuts % (Manual) 73.0 % (40.0-70.0) H 07/26/16 13:30 Band Neutrophils % 16.0 % 07/26/16 13:30 Lymphocytes % (Manual) 6.0 % (13.4-35.0) L 07/26/16 13:30 Reactive Lymphs % (Man) 0 % 07/26/16 13:30 Monocytes % (Manual) 5.0 % (0.0-7.3) 07/26/16 13:30 Eosinophils % (Manual) 0 % (0.0-4.3) 07/26/16 13:30 Basophils % (Manual) 0 % (0.0-1.8) 07/26/16 13:30 Metamyelocytes % 0 % 07/26/16 13:30 Myelocytes % 0 % 07/26/16 13:30 Promyelocytes % 0 % 07/26/16 13:30 Blast Cells % 0 % 07/26/16 13:30 Nucleated RBC % Not Reportable 07/26/16 13:30 Seg Neutrophils # 14.3 K/mm3 (1.8-7.7) H 07/28/16 07:23 Seg Neutrophils # Man 13.5 K/mm3 (1.8-7.7) H 07/26/16 13:30 Band Neutrophils # 3.0 K/mm3 07/26/16 13:30 Lymphocytes # (Manual) 1.1 K/mm3 (1.2-5.4) L 07/26/16 13:30 Abs React Lymphs (Man) 0.0 K/mm3 07/26/16 13:30 Monocytes # (Manual) 0.9 K/mm3 (0.0-0.8) H 07/26/16 13:30 Eosinophils # (Manual) 0.0 K/mm3 (0.0-0.4) 07/26/16 13:30 Basophils # (Manual) 0.0 K/mm3 (0.0-0.1) 07/26/16 13:30 Metamyelocytes # 0.0 K/mm3 07/26/16 13:30 Myelocytes # 0.0 K/mm3 07/26/16 13:30 Promyelocytes # 0.0 K/mm3 07/26/16 13:30 Blast Cells # 0.0 K/mm3 07/26/16 13:30 WBC Morphology Not Reportable 07/26/16 13:30 Hypersegmented Neuts Not Reportable 07/26/16 13:30 Hyposegmented Neuts Not Reportable 07/26/16 13:30 Hypogranular Neuts Not Reportable 07/26/16 13:30 Smudge Cells Not Reportable 07/26/16 13:30 Toxic Granulation Not Reportable 07/26/16 13:30 Toxic Vacuolation Not Reportable 07/26/16 13:30 Dohle Bodies Not Reportable 07/26/16 13:30 Pelger-Huet Anomaly Not Reportable 07/26/16 13:30 Ginna Rods Not Reportable 07/26/16 13:30 Platelet Estimate Not Reportable 07/26/16 13:30 Clumped Platelets Not Reportable 07/26/16 13:30 Plt Clumps, EDTA Not Reportable 07/26/16 13:30 Large Platelets Not Reportable 07/26/16 13:30 Giant Platelets Not Reportable 07/26/16 13:30 Platelet Satelliting Not Reportable 07/26/16 13:30 Plt Morphology Comment Not Reportable 07/26/16 13:30 RBC Morphology Not Reportable 07/26/16 13:30 Dimorphic RBCs Not Reportable 07/26/16 13:30 Polychromasia Not Reportable 07/26/16 13:30 Hypochromasia Not Reportable 07/26/16 13:30 Poikilocytosis Not Reportable 07/26/16 13:30 Anisocytosis Few 07/26/16 13:30 Microcytosis Not Reportable 07/26/16 13:30 Macrocytosis Not Reportable 07/26/16 13:30 Spherocytes Not Reportable 07/26/16 13:30 Pappenheimer Bodies Not Reportable 07/26/16 13:30 Sickle Cells Not Reportable 07/26/16 13:30 Target Cells Not Reportable 07/26/16 13:30 Tear Drop Cells Not Reportable 07/26/16 13:30 Ovalocytes Not Reportable 07/26/16 13:30 Helmet Cells Not Reportable 07/26/16 13:30 Post-[place] Bodies Not Reportable 07/26/16 13:30 [place] Rings Not Reportable 07/26/16 13:30 Breanna Cells Not Reportable 07/26/16 13:30 Bite Cells Not Reportable 07/26/16 13:30 Crenated Cell Not Reportable 07/26/16 13:30 Elliptocytes Not Reportable 07/26/16 13:30 Acanthocytes (Spur) Not Reportable 07/26/16 13:30 Rouleaux Not Reportable 07/26/16 13:30 Hemoglobin C Crystals Not Reportable 07/26/16 13:30 Schistocytes Not Reportable 07/26/16 13:30 Malaria parasites Not Reportable 07/26/16 13:30 Uriah Bodies Not Reportable 07/26/16 13:30 Hem Pathologist Commnt No 07/26/16 13:30 Sodium 138 mmol/L (137-145) 07/29/16 06:50 Potassium 4.3 mmol/L (3.6-5.0) 07/29/16 06:50 Chloride 101.0 mmol/L (98-107) 07/29/16 06:50 Carbon Dioxide 24 mmol/L (22-30) 07/29/16 06:50 Anion Gap 17 mmol/L 07/29/16 06:50 BUN 8 mg/dL (9-20) L 07/29/16 06:50 Creatinine 0.8 mg/dL (0.8-1.5) 07/29/16 06:50 Estimated GFR > 60 ml/min 07/29/16 06:50 BUN/Creatinine Ratio 10.00 % 07/29/16 06:50 Glucose 114 mg/dL (75-100) H 07/29/16 06:50 Calcium 8.4 mg/dL (8.4-10.2) 07/29/16 06:50 Total Bilirubin 1.10 mg/dL (0.1-1.2) 07/27/16 06:39 AST 112 units/L (5-40) H 07/27/16 06:39 ALT 139 units/L (7-56) H 07/27/16 06:39 Alkaline Phosphatase 131 units/L (35-129) H 07/27/16 06:39 Total Protein 5.9 g/dL (6.3-8.2) L 07/27/16 06:39 Albumin 2.5 g/dL (3.9-5) L 07/27/16 06:39 Albumin/Globulin Ratio 0.7 % 07/27/16 06:39 Urine Color Yellow (Yellow) 07/26/16 17:47 Urine Turbidity Clear (Clear) 07/26/16 17:47 Urine pH 6.0 (5.0-7.0) 07/26/16 17:47 Ur Specific [place] 1.005 (1.003-1.030) 07/26/16 17:47 Urine Protein <15 mg/dl mg/dL (Negative) 07/26/16 17:47 Urine Glucose (UA) Neg mg/dL (Negative) 07/26/16 17:47 Urine Ketones Neg mg/dL (Negative) 07/26/16 17:47 Urine Blood Mod (Negative) 07/26/16 17:47 Urine Nitrite Neg (Negative) 07/26/16 17:47 Urine Bilirubin Neg (Negative) 07/26/16 17:47 Urine Urobilinogen 2.0 mg/dL (<2.0) 07/26/16 17:47 Ur Leukocyte Esterase Neg (Negative) 07/26/16 17:47 Urine WBC (Auto) 1.0 /HPF (0.0-6.0) 07/26/16 17:47 Urine RBC (Auto) 1.0 /HPF (0.0-6.0) 07/26/16 17:47 Urine Bacteria (Auto) 1+ /HPF (Negative) 07/26/16 17:47 RPR Nonreactive (Nonreactive) 07/27/16 11:46 Hep Bs Antigen Non-reactive (Negative) 07/27/16 11:46 Hep Bs Antibody, Quant >1000 mIU/mL (>=10) 07/27/16 11:46 Hep B Core Total Ab Nonreactive (Nonreactive) 07/27/16 11:46 Hepatitis C Antibody Reactive (NonReactive) 07/27/16 11:46 HIV 1&2 Antibody Rapid Non react (Non React) 07/26/16 19:15 HIV P24 Antigen Non react (Non React) 07/26/16 19:15
[2016-07-29] MEDS: D5NS 1,000 ML IV SCH (10:21)
[2016-07-29] MEDS: LOVENOX SUB-Q SCH (10:21)
[2016-07-29] MEDS: ASPIRIN PO SCH (10:56)
[2016-07-29] MEDS: ROCEPHIN/NS 2 GM/100 ML 2 GM/100 ML BAG IV SCH (10:56)
[2016-07-29] MEDS ORDERED: NACL 0.9% 500 ML 500 ML IV ONE ×2 (16:00→20:00)
--- NOTE | 2016-07-29 18:57 | Cat Scan Report ---
FINAL REPORT PROCEDURE: CT UPPER EXTREM LT W CON TECHNIQUE: Computerized axial tomography was performed of the LEFT upper extremity after the IV injection of iodinated nonionic contrast. HISTORY: left hand swelling, r/o abscess COMPARISON: No prior studies are available for comparison. FINDINGS: No acute bony abnormalities are identified. No fracture or dislocation is seen. No focal bone loss or abnormal periosteal reaction is visualized. No radiopaque foreign bodies are seen. No abnormal fluid collections are seen that would suggest an abscess or hematoma. No masses are identified.. IMPRESSION: No acute or focal abnormalities are identified. If there is still concern for a small abscess consider ultrasound over the specific area of concern.
[2016-07-29] MEDS: NACL 0.9% IV SCH (19:33)
[2016-07-29] MEDS: GARAMYCIN IV SCH (19:33)
[2016-07-30] MEDS: TYLENOL PO PRN (00:01)
[2016-07-30] MEDS: D5NS 1,000 ML IV SCH ×2 (00:02→14:25)
--- NOTE | 2016-07-30 07:25 | Progress Note ---
Assessment and Plan - Patient Problems (1) Bacteremia due to Gram-positive bacteria Current Visit: Yes Status: Acute Plan to address problem: Continue Rocephin and Gentamicin. (2) Rheumatic fever Current Visit: Yes Status: Acute Plan to address problem: 1. Long-term prophylaxis is considered, but patient has no valvular lesions on echo. 1. Anticipate completing course of treatment of rheumatic fever and bacteremia with oral therapy. (3) Hepatitis C antibody positive in blood Current Visit: Yes Status: Acute Plan to address problem: Awair HCV quant to confirm chronic infection. (4) High risk sexual behavior Current Visit: Yes Status: Acute Plan to address problem: Await result of GC/ chlamydia screen. RPR is non-reactive. Subjective Date of service: 07/30/16 Interval history: No new clinical issues. Objective - Constitutional Vitals: Vital Signs Temp Pulse Resp BP Pulse Ox 100.4 F H 104 H 20 107/63 98 07/29/16 23:53 07/29/16 23:53 07/29/16 23:53 07/29/16 23:53 07/29/16 23:53 Temperature -Last 24 Hours Temperature 100.4 F Temperature 99.4 F Temperature 99.1 F Temperature 99.5 F Temperature 100.3 F General appearance: Present: no acute distress - EENT Eyes: no conjunctival injection - Respiratory Respiratory effort: normal - Cardiovascular Rhythm: regular Heart Sounds: Present: S1 & S2 Extremity abnormal: edema, other (decreased edema and erythema of all affected large joints, especially at left wrist) - Integumentary Integumentary: clear, no rash - Neurologic Neurologic: no focal deficits - Psychiatric Psychiatric: appropriate mood/affect - Labs CBC & Chem 7: 07/30/16 08:44 07/30/16 10:51 Labs: Abnormal lab results 07/29/16 Range/Units 06:50 BUN 8 L (9-20) mg/dL Glucose 114 H (75-100) mg/dL Microbiology 07/28/16 00:42 Peripheral/Venous Blood Culture - Preliminary NO GROWTH AFTER 48 HOURS 07/27/16 11:46 Peripheral/Venous Blood Culture - Preliminary NO GROWTH AFTER 48 HOURS 07/26/16 13:30 Peripheral/Venous Blood Culture - Final Beta Hemolytic Strep Group A 07/26/16 13:51 Peripheral/Venous Blood Culture - Final Beta Hemolytic Strep Group A 07/26/16 17:47 Urine,Clean Catch Urine Culture - Final 07/26/16 18:46 Throat Group A Streptococcus Rapid Screen - Final 07/26/16 18:46 Throat Group A Strep Throat Culture - Final Active Medications Acetaminophen (Tylenol) 650 mg PO Q4H PRN PRN Reason: Pain MILD(1-3)/Fever >100.5/REINOSO Last Admin: 07/30/16 00:01 Dose: 650 mg Aspirin (Aspirin) 325 mg PO QDAY [facility] Last Admin: 07/29/16 10:56 Dose: 325 mg Bisacodyl (Dulcolax) 10 mg NM QDAY PRN PRN Reason: Constipation unrelieved by MOM Enoxaparin Sodium (Lovenox) 40 mg SUB-Q QDAY [facility] Last Admin: 07/29/16 10:21 Dose: 40 mg Dextrose/Sodium Chloride (D5ns) 1,000 mls @ 75 mls/hr IV DIRECT ADRIEN Last Admin: 07/30/16 00:02 Dose: 75 mls/hr Ceftriaxone Sodium (Rocephin/Ns 2 Gm/100 Ml) 2 gm in 100 mls @ 200 mls/hr IV Q24HR [facility] PRN Reason: Protocol Last Admin: 07/29/16 10:56 Dose: 200 mls/hr Gentamicin Sulfate 320 mg/ (Sodium Chloride) 108 mls @ 108 mls/hr IV Q24H [facility] Last Admin: 07/29/16 19:33 Dose: 108 mls/hr Magnesium Hydroxide (Milk Of Magnesia) 30 ml PO Q4H PRN PRN Reason: Constipation Last Admin: 07/28/16 16:46 Dose: 30 ml Ondansetron HCl (Zofran) 4 mg IV Q8H PRN PRN Reason: N/V unrelieved by Reglan Oxycodone/Acetaminophen (Percocet 5/325) 1 tab PO Q6H PRN PRN Reason: Pain, Moderate (4-6) Last Admin: 07/29/16 15:18 Dose: 1 tab - Imaging and cardiology Other: report reviewed (CT LUE shows no abscess or collection )
[2016-07-30 09:28] LABS: Basophils % (Auto) 0.1 % (0.0-1.8); Eosinophils % (Auto) 0.7 % (0.0-4.3); Hematocrit 35.9 % (35.5-45.6); Hemoglobin 11.8 gm/dl (11.8-15.2); Mean Corpuscular HGB Conc 33 % (32-34); Mean Corpuscular Hemoglobin 27 pg (28-32); Mean Corpuscular Volume 83 fl (84-94); Platelet Count 323 K/mm3 (140-440); Red Blood Count 4.35 M/mm3 (3.65-5.03); Red Cell Distribution Width 15.4 % (13.2-15.2)
[2016-07-30 10:12] LABS: Chloride TNR mmol/L (98-107); Potassium TNR mmol/L (3.6-5.0); Sodium TNR mmol/L (137-145)
[2016-07-30 10:13] LABS: Anion Gap TNR mmol/L; BUN/Creatinine Ratio TNR; Blood Urea Nitrogen TNR mg/dL (9-20); Calcium TNR mg/dL (8.4-10.2); Carbon Dioxide TNR mmol/L (22-30); Glucose TNR mg/dL (75-100)
[2016-07-30 10:14] LABS: Magnesium TNR mg/dL (1.7-2.3)
[2016-07-30] MEDS: LOVENOX SUB-Q SCH (11:00)
[2016-07-30] MEDS: PERCOCET 5/325 PO PRN ×2 (11:13→23:15)
[2016-07-30] MEDS: ASPIRIN PO SCH (11:13)
[2016-07-30] MEDS: ROCEPHIN/NS 2 GM/100 ML 2 GM/100 ML BAG IV SCH (11:13)
[2016-07-30 12:03] LABS: Anion Gap 21 mmol/L; BUN/Creatinine Ratio 11.25; Blood Urea Nitrogen 9 mg/dL (9-20); Calcium 8.7 mg/dL (8.4-10.2); Carbon Dioxide 21 mmol/L (22-30); Chloride 99.7 mmol/L (98-107); Glucose 132 mg/dL (75-100); Potassium 4.6 mmol/L (3.6-5.0); Sodium 137 mmol/L (137-145)
--- NOTE | 2016-07-30 15:26 | Progress Note ---
Assessment and Plan Assessment and plan: --Sepsis secondary to gram-positive bacteremia On Rocephin and gentamicin, follow cultures Patient will be discharged on oral Levaquin when stable Antibiotics until 08/11/2016 per ID --Febrile illness/low-grade fever MAXIMUM TEMPERATURE 100.4 Secondary to sepsis, hep C positive, as well as rheumatic fever --Hepatitis C positive status Patient has history of IV drug use Follow hepatitis C viral load, supportive care --Rheumatic fever; Continue current antibiotics, Echo Cardiogram Negative for vegetations --High risk sexual behavior, Workup is in progress, ID following, --DVT prophylaxis with Lovenox Will closely monitor the patient and adjust the management as needed Plan of care discussed with the patient as well as his nurse History Interval history: Patient seen and evaluated medical records reviewed patient feels slightly better, left hand swelling slightly decreased No new complaints Alert awake oriented 3 not in acute distress Vital signs reviewed stable Hospitalist Physical - Constitutional Vitals: Temp Pulse Resp BP Pulse Ox 99.7 F H 68 18 119/72 98 07/30/16 12:17 07/30/16 12:17 07/30/16 12:17 07/30/16 12:17 07/30/16 12:17 General appearance: Present: no acute distress, cachectic - EENT Eyes: Present: PERRL, EOM intact - Neck Neck: Present: supple, normal ROM - Respiratory Respiratory effort: normal Respiratory: bilateral: diminished, negative: rales, rhonchi, wheezing - Cardiovascular Rhythm: regular Heart Sounds: Present: S1 & S2 - Extremities Extremities: no ischemia, pulses intact, pulses symmetrical, abnormal (left hand swelling slightly improved) Peripheral Pulses: within normal limits - Abdominal General gastrointestinal: soft, non-tender, non-distended, normal bowel sounds - Integumentary Integumentary: Present: clear, warm - Psychiatric Psychiatric: appropriate mood/affect, cooperative - Neurologic Neurologic: CNII-XII intact, moves all extremities Results - Labs CBC & Chem 7: 07/30/16 08:44 07/30/16 10:51 Labs: Laboratory Last Values WBC 12.0 K/mm3 (4.5-11.0) H 07/30/16 08:44 RBC 4.35 M/mm3 (3.65-5.03) 07/30/16 08:44 Hgb 11.8 gm/dl (11.8-15.2) 07/30/16 08:44 Hct 35.9 % (35.5-45.6) 07/30/16 08:44 MCV 83 fl (84-94) L 07/30/16 08:44 MCH 27 pg (28-32) L 07/30/16 08:44 MCHC 33 % (32-34) 07/30/16 08:44 RDW 15.4 % (13.2-15.2) H 07/30/16 08:44 Plt Count 323 K/mm3 (140-440) 07/30/16 08:44 Lymph % (Auto) 16.7 % (13.4-35.0) 07/30/16 08:44 [place] % (Auto) 6.5 % (0.0-7.3) 07/30/16 08:44 Eos % (Auto) 0.7 % (0.0-4.3) 07/30/16 08:44 Baso % (Auto) 0.1 % (0.0-1.8) 07/30/16 08:44 Lymph # 2.0 K/mm3 (1.2-5.4) 07/30/16 08:44 [place] # 0.8 K/mm3 (0.0-0.8) 07/30/16 08:44 Eos # 0.1 K/mm3 (0.0-0.4) 07/30/16 08:44 Baso # 0.0 K/mm3 (0.0-0.1) 07/30/16 08:44 Add Manual Diff Complete 07/26/16 13:30 Total Counted 100 07/26/16 13:30 Seg Neutrophils % 76.0 % (40.0-70.0) H 07/30/16 08:44 Seg Neuts % (Manual) 73.0 % (40.0-70.0) H 07/26/16 13:30 Band Neutrophils % 16.0 % 07/26/16 13:30 Lymphocytes % (Manual) 6.0 % (13.4-35.0) L 07/26/16 13:30 Reactive Lymphs % (Man) 0 % 07/26/16 13:30 Monocytes % (Manual) 5.0 % (0.0-7.3) 07/26/16 13:30 Eosinophils % (Manual) 0 % (0.0-4.3) 07/26/16 13:30 Basophils % (Manual) 0 % (0.0-1.8) 07/26/16 13:30 Metamyelocytes % 0 % 07/26/16 13:30 Myelocytes % 0 % 07/26/16 13:30 Promyelocytes % 0 % 07/26/16 13:30 Blast Cells % 0 % 07/26/16 13:30 Nucleated RBC % Not Reportable 07/26/16 13:30 Seg Neutrophils # 9.1 K/mm3 (1.8-7.7) H 07/30/16 08:44 Seg Neutrophils # Man 13.5 K/mm3 (1.8-7.7) H 07/26/16 13:30 Band Neutrophils # 3.0 K/mm3 07/26/16 13:30 Lymphocytes # (Manual) 1.1 K/mm3 (1.2-5.4) L 07/26/16 13:30 Abs React Lymphs (Man) 0.0 K/mm3 07/26/16 13:30 Monocytes # (Manual) 0.9 K/mm3 (0.0-0.8) H 07/26/16 13:30 Eosinophils # (Manual) 0.0 K/mm3 (0.0-0.4) 07/26/16 13:30 Basophils # (Manual) 0.0 K/mm3 (0.0-0.1) 07/26/16 13:30 Metamyelocytes # 0.0 K/mm3 07/26/16 13:30 Myelocytes # 0.0 K/mm3 07/26/16 13:30 Promyelocytes # 0.0 K/mm3 07/26/16 13:30 Blast Cells # 0.0 K/mm3 07/26/16 13:30 WBC Morphology Not Reportable 07/26/16 13:30 Hypersegmented Neuts Not Reportable 07/26/16 13:30 Hyposegmented Neuts Not Reportable 07/26/16 13:30 Hypogranular Neuts Not Reportable 07/26/16 13:30 Smudge Cells Not Reportable 07/26/16 13:30 Toxic Granulation Not Reportable 07/26/16 13:30 Toxic Vacuolation Not Reportable 07/26/16 13:30 Dohle Bodies Not Reportable 07/26/16 13:30 Pelger-Huet Anomaly Not Reportable 07/26/16 13:30 Ginna Rods Not Reportable 07/26/16 13:30 Platelet Estimate Not Reportable 07/26/16 13:30 Clumped Platelets Not Reportable 07/26/16 13:30 Plt Clumps, EDTA Not Reportable 07/26/16 13:30 Large Platelets Not Reportable 07/26/16 13:30 Giant Platelets Not Reportable 07/26/16 13:30 Platelet Satelliting Not Reportable 07/26/16 13:30 Plt Morphology Comment Not Reportable 07/26/16 13:30 RBC Morphology Not Reportable 07/26/16 13:30 Dimorphic RBCs Not Reportable 07/26/16 13:30 Polychromasia Not Reportable 07/26/16 13:30 Hypochromasia Not Reportable 07/26/16 13:30 Poikilocytosis Not Reportable 07/26/16 13:30 Anisocytosis Few 07/26/16 13:30 Microcytosis Not Reportable 07/26/16 13:30 Macrocytosis Not Reportable 07/26/16 13:30 Spherocytes Not Reportable 07/26/16 13:30 Pappenheimer Bodies Not Reportable 07/26/16 13:30 Sickle Cells Not Reportable 07/26/16 13:30 Target Cells Not Reportable 07/26/16 13:30 Tear Drop Cells Not Reportable 07/26/16 13:30 Ovalocytes Not Reportable 07/26/16 13:30 Helmet Cells Not Reportable 07/26/16 13:30 Post-[place] Bodies Not Reportable 07/26/16 13:30 [place] Rings Not Reportable 07/26/16 13:30 Breanna Cells Not Reportable 07/26/16 13:30 Bite Cells Not Reportable 07/26/16 13:30 Crenated Cell Not Reportable 07/26/16 13:30 Elliptocytes Not Reportable 07/26/16 13:30 Acanthocytes (Spur) Not Reportable 07/26/16 13:30 Rouleaux Not Reportable 07/26/16 13:30 Hemoglobin C Crystals Not Reportable 07/26/16 13:30 Schistocytes Not Reportable 07/26/16 13:30 Malaria parasites Not Reportable 07/26/16 13:30 Uriah Bodies Not Reportable 07/26/16 13:30 Hem Pathologist Commnt No 07/26/16 13:30 Sodium 137 mmol/L (137-145) 07/30/16 10:51 Potassium 4.6 mmol/L (3.6-5.0) 07/30/16 10:51 Chloride 99.7 mmol/L (98-107) 07/30/16 10:51 Carbon Dioxide 21 mmol/L (22-30) L 07/30/16 10:51 Anion Gap 21 mmol/L 07/30/16 10:51 BUN 9 mg/dL (9-20) 07/30/16 10:51 Creatinine 0.8 mg/dL (0.8-1.5) 07/30/16 10:51 Estimated GFR > 60 ml/min 07/30/16 10:51 BUN/Creatinine Ratio 11.25 % 07/30/16 10:51 Glucose 132 mg/dL (75-100) H 07/30/16 10:51 Calcium 8.7 mg/dL (8.4-10.2) 07/30/16 10:51 Magnesium 1.90 mg/dL (1.7-2.3) 07/30/16 10:51 Total Bilirubin 1.10 mg/dL (0.1-1.2) 07/27/16 06:39 AST 112 units/L (5-40) H 07/27/16 06:39 ALT 139 units/L (7-56) H 07/27/16 06:39 Alkaline Phosphatase 131 units/L (35-129) H 07/27/16 06:39 Total Protein 5.9 g/dL (6.3-8.2) L 07/27/16 06:39 Albumin 2.5 g/dL (3.9-5) L 07/27/16 06:39 Albumin/Globulin Ratio 0.7 % 07/27/16 06:39 Urine Color Yellow (Yellow) 07/26/16 17:47 Urine Turbidity Clear (Clear) 07/26/16 17:47 Urine pH 6.0 (5.0-7.0) 07/26/16 17:47 Ur Specific [place] 1.005 (1.003-1.030) 07/26/16 17:47 Urine Protein <15 mg/dl mg/dL (Negative) 07/26/16 17:47 Urine Glucose (UA) Neg mg/dL (Negative) 07/26/16 17:47 Urine Ketones Neg mg/dL (Negative) 07/26/16 17:47 Urine Blood Mod (Negative) 07/26/16 17:47 Urine Nitrite Neg (Negative) 07/26/16 17:47 Urine Bilirubin Neg (Negative) 07/26/16 17:47 Urine Urobilinogen 2.0 mg/dL (<2.0) 07/26/16 17:47 Ur Leukocyte Esterase Neg (Negative) 07/26/16 17:47 Urine WBC (Auto) 1.0 /HPF (0.0-6.0) 07/26/16 17:47 Urine RBC (Auto) 1.0 /HPF (0.0-6.0) 07/26/16 17:47 Urine Bacteria (Auto) 1+ /HPF (Negative) 07/26/16 17:47 RPR Nonreactive (Nonreactive) 07/27/16 11:46 Hep Bs Antigen Non-reactive (Negative) 07/27/16 11:46 Hep Bs Antibody, Quant >1000 mIU/mL (>=10) 07/27/16 11:46 Hep B Core Total Ab Nonreactive (Nonreactive) 07/27/16 11:46 Hepatitis C Antibody Reactive (NonReactive) 07/27/16 11:46 HIV 1&2 Antibody Rapid Non react (Non React) 07/26/16 19:15 HIV P24 Antigen Non react (Non React) 07/26/16 19:15
[2016-07-30] MEDS: GARAMYCIN IV SCH (18:24)
[2016-07-30] MEDS: NACL 0.9% IV SCH (18:24)
[2016-07-31] MEDS: D5NS 1,000 ML IV SCH ×2 (04:15→16:45)
--- NOTE | 2016-07-31 08:17 | Progress Note ---
Assessment and Plan Assessment and plan: --Febrile illness/low-grade fever MAXIMUM TEMPERATURE 100.4 Secondary to sepsis, hep C positive, as well as rheumatic fever --Sepsis secondary to gram-positive bacteremia On Rocephin and gentamicin, follow cultures Patient will be discharged on oral Levaquin when stable Antibiotics until 08/10/2016 per ID --Hepatitis C positive status Patient has history of IV drug use Follow hepatitis C viral load, supportive care --Rheumatic fever; Continue current antibiotics, Echo Cardiogram Negative for vegetations --Left hand swelling/arthritis Swelling significantly improved, CT hand no acute changes --High risk sexual behavior, Workup is in progress, ID following, --DVT prophylaxis with Lovenox Will closely monitor the patient and adjust the management as needed Plan of care discussed with the patient as well as his nurse Possible discharge in 1-2 days if stable History Interval history: Patient seen and evaluated medical records reviewed Patient feels better no new complaints, Left wrist swelling significantly improved, low-grade fever MAXIMUM TEMPERATURE 100.3, alert awake oriented 3 not in acute distress Hospitalist Physical - Constitutional Vitals: Temp Pulse Resp BP Pulse Ox 99.6 F 72 18 110/65 98 07/31/16 04:00 07/31/16 04:00 07/31/16 04:00 07/31/16 04:00 07/30/16 20:00 General appearance: Present: no acute distress, well-nourished - EENT Eyes: Present: PERRL, EOM intact - Neck Neck: Present: supple, normal ROM - Respiratory Respiratory effort: normal Respiratory: negative: rales, rhonchi, wheezing - Cardiovascular Rhythm: regular Heart Sounds: Present: S1 & S2 - Extremities Extremities: no ischemia, pulses intact, pulses symmetrical, abnormal (left hand swelling significantly improved) Peripheral Pulses: within normal limits - Abdominal General gastrointestinal: soft, non-tender, non-distended, normal bowel sounds - Integumentary Integumentary: Present: clear, warm - Psychiatric Psychiatric: appropriate mood/affect, cooperative - Neurologic Neurologic: CNII-XII intact, moves all extremities Results - Labs CBC & Chem 7: 07/30/16 08:44 07/30/16 10:51 Labs: Laboratory Last Values WBC 12.0 K/mm3 (4.5-11.0) H 07/30/16 08:44 RBC 4.35 M/mm3 (3.65-5.03) 07/30/16 08:44 Hgb 11.8 gm/dl (11.8-15.2) 07/30/16 08:44 Hct 35.9 % (35.5-45.6) 07/30/16 08:44 MCV 83 fl (84-94) L 07/30/16 08:44 MCH 27 pg (28-32) L 07/30/16 08:44 MCHC 33 % (32-34) 07/30/16 08:44 RDW 15.4 % (13.2-15.2) H 07/30/16 08:44 Plt Count 323 K/mm3 (140-440) 07/30/16 08:44 Lymph % (Auto) 16.7 % (13.4-35.0) 07/30/16 08:44 Allen % (Auto) 6.5 % (0.0-7.3) 07/30/16 08:44 Eos % (Auto) 0.7 % (0.0-4.3) 07/30/16 08:44 Baso % (Auto) 0.1 % (0.0-1.8) 07/30/16 08:44 Lymph # 2.0 K/mm3 (1.2-5.4) 07/30/16 08:44 Allen # 0.8 K/mm3 (0.0-0.8) 07/30/16 08:44 Eos # 0.1 K/mm3 (0.0-0.4) 07/30/16 08:44 Baso # 0.0 K/mm3 (0.0-0.1) 07/30/16 08:44 Add Manual Diff Complete 07/26/16 13:30 Total Counted 100 07/26/16 13:30 Seg Neutrophils % 76.0 % (40.0-70.0) H 07/30/16 08:44 Seg Neuts % (Manual) 73.0 % (40.0-70.0) H 07/26/16 13:30 Band Neutrophils % 16.0 % 07/26/16 13:30 Lymphocytes % (Manual) 6.0 % (13.4-35.0) L 07/26/16 13:30 Reactive Lymphs % (Man) 0 % 07/26/16 13:30 Monocytes % (Manual) 5.0 % (0.0-7.3) 07/26/16 13:30 Eosinophils % (Manual) 0 % (0.0-4.3) 07/26/16 13:30 Basophils % (Manual) 0 % (0.0-1.8) 07/26/16 13:30 Metamyelocytes % 0 % 07/26/16 13:30 Myelocytes % 0 % 07/26/16 13:30 Promyelocytes % 0 % 07/26/16 13:30 Blast Cells % 0 % 07/26/16 13:30 Nucleated RBC % Not Reportable 07/26/16 13:30 Seg Neutrophils # 9.1 K/mm3 (1.8-7.7) H 07/30/16 08:44 Seg Neutrophils # Man 13.5 K/mm3 (1.8-7.7) H 07/26/16 13:30 Band Neutrophils # 3.0 K/mm3 07/26/16 13:30 Lymphocytes # (Manual) 1.1 K/mm3 (1.2-5.4) L 07/26/16 13:30 Abs React Lymphs (Man) 0.0 K/mm3 07/26/16 13:30 Monocytes # (Manual) 0.9 K/mm3 (0.0-0.8) H 07/26/16 13:30 Eosinophils # (Manual) 0.0 K/mm3 (0.0-0.4) 07/26/16 13:30 Basophils # (Manual) 0.0 K/mm3 (0.0-0.1) 07/26/16 13:30 Metamyelocytes # 0.0 K/mm3 07/26/16 13:30 Myelocytes # 0.0 K/mm3 07/26/16 13:30 Promyelocytes # 0.0 K/mm3 07/26/16 13:30 Blast Cells # 0.0 K/mm3 07/26/16 13:30 WBC Morphology Not Reportable 07/26/16 13:30 Hypersegmented Neuts Not Reportable 07/26/16 13:30 Hyposegmented Neuts Not Reportable 07/26/16 13:30 Hypogranular Neuts Not Reportable 07/26/16 13:30 Smudge Cells Not Reportable 07/26/16 13:30 Toxic Granulation Not Reportable 07/26/16 13:30 Toxic Vacuolation Not Reportable 07/26/16 13:30 Dohle Bodies Not Reportable 07/26/16 13:30 Pelger-Huet Anomaly Not Reportable 07/26/16 13:30 Ginna Rods Not Reportable 07/26/16 13:30 Platelet Estimate Not Reportable 07/26/16 13:30 Clumped Platelets Not Reportable 07/26/16 13:30 Plt Clumps, EDTA Not Reportable 07/26/16 13:30 Large Platelets Not Reportable 07/26/16 13:30 Giant Platelets Not Reportable 07/26/16 13:30 Platelet Satelliting Not Reportable 07/26/16 13:30 Plt Morphology Comment Not Reportable 07/26/16 13:30 RBC Morphology Not Reportable 07/26/16 13:30 Dimorphic RBCs Not Reportable 07/26/16 13:30 Polychromasia Not Reportable 07/26/16 13:30 Hypochromasia Not Reportable 07/26/16 13:30 Poikilocytosis Not Reportable 07/26/16 13:30 Anisocytosis Few 07/26/16 13:30 Microcytosis Not Reportable 07/26/16 13:30 Macrocytosis Not Reportable 07/26/16 13:30 Spherocytes Not Reportable 07/26/16 13:30 Pappenheimer Bodies Not Reportable 07/26/16 13:30 Sickle Cells Not Reportable 07/26/16 13:30 Target Cells Not Reportable 07/26/16 13:30 Tear Drop Cells Not Reportable 07/26/16 13:30 Ovalocytes Not Reportable 07/26/16 13:30 Helmet Cells Not Reportable 07/26/16 13:30 Post-[place] Bodies Not Reportable 07/26/16 13:30 [place] Rings Not Reportable 07/26/16 13:30 Breanna Cells Not Reportable 07/26/16 13:30 Bite Cells Not Reportable 07/26/16 13:30 Crenated Cell Not Reportable 07/26/16 13:30 Elliptocytes Not Reportable 07/26/16 13:30 Acanthocytes (Spur) Not Reportable 07/26/16 13:30 Rouleaux Not Reportable 07/26/16 13:30 Hemoglobin C Crystals Not Reportable 07/26/16 13:30 Schistocytes Not Reportable 07/26/16 13:30 Malaria parasites Not Reportable 07/26/16 13:30 Uriah Bodies Not Reportable 07/26/16 13:30 Hem Pathologist Commnt No 07/26/16 13:30 Sodium 137 mmol/L (137-145) 07/30/16 10:51 Potassium 4.6 mmol/L (3.6-5.0) 07/30/16 10:51 Chloride 99.7 mmol/L (98-107) 07/30/16 10:51 Carbon Dioxide 21 mmol/L (22-30) L 07/30/16 10:51 Anion Gap 21 mmol/L 07/30/16 10:51 BUN 9 mg/dL (9-20) 07/30/16 10:51 Creatinine 0.8 mg/dL (0.8-1.5) 07/30/16 10:51 Estimated GFR > 60 ml/min 07/30/16 10:51 BUN/Creatinine Ratio 11.25 % 07/30/16 10:51 Glucose 132 mg/dL (75-100) H 07/30/16 10:51 Calcium 8.7 mg/dL (8.4-10.2) 07/30/16 10:51 Magnesium 1.90 mg/dL (1.7-2.3) 07/30/16 10:51 Total Bilirubin 1.10 mg/dL (0.1-1.2) 07/27/16 06:39 AST 112 units/L (5-40) H 07/27/16 06:39 ALT 139 units/L (7-56) H 07/27/16 06:39 Alkaline Phosphatase 131 units/L (35-129) H 07/27/16 06:39 Total Protein 5.9 g/dL (6.3-8.2) L 07/27/16 06:39 Albumin 2.5 g/dL (3.9-5) L 07/27/16 06:39 Albumin/Globulin Ratio 0.7 % 07/27/16 06:39 Urine Color Yellow (Yellow) 07/26/16 17:47 Urine Turbidity Clear (Clear) 07/26/16 17:47 Urine pH 6.0 (5.0-7.0) 07/26/16 17:47 Ur Specific [place] 1.005 (1.003-1.030) 07/26/16 17:47 Urine Protein <15 mg/dl mg/dL (Negative) 07/26/16 17:47 Urine Glucose (UA) Neg mg/dL (Negative) 07/26/16 17:47 Urine Ketones Neg mg/dL (Negative) 07/26/16 17:47 Urine Blood Mod (Negative) 07/26/16 17:47 Urine Nitrite Neg (Negative) 07/26/16 17:47 Urine Bilirubin Neg (Negative) 07/26/16 17:47 Urine Urobilinogen 2.0 mg/dL (<2.0) 07/26/16 17:47 Ur Leukocyte Esterase Neg (Negative) 07/26/16 17:47 Urine WBC (Auto) 1.0 /HPF (0.0-6.0) 07/26/16 17:47 Urine RBC (Auto) 1.0 /HPF (0.0-6.0) 07/26/16 17:47 Urine Bacteria (Auto) 1+ /HPF (Negative) 07/26/16 17:47 RPR Nonreactive (Nonreactive) 07/27/16 11:46 Hep Bs Antigen Non-reactive (Negative) 07/27/16 11:46 Hep Bs Antibody, Quant >1000 mIU/mL (>=10) 07/27/16 11:46 Hep B Core Total Ab Nonreactive (Nonreactive) 07/27/16 11:46 Hepatitis C Antibody Reactive (NonReactive) 07/27/16 11:46 HIV 1&2 Antibody Rapid Non react (Non React) 07/26/16 19:15 HIV P24 Antigen Non react (Non React) 07/26/16 19:15
--- NOTE | 2016-07-31 09:42 | Progress Note ---
Assessment and Plan - Patient Problems (1) Bacteremia due to Gram-positive bacteria Current Visit: Yes Status: Acute Plan to address problem: Should finish last dose of antibiotics on August 10, 2016. Continue IV antibiotics while inpatient. Can change to Levaquin (not Cipro) at time of discharge, which has great oral bioavailability. (2) Rheumatic fever Current Visit: Yes Status: Acute Plan to address problem: Complete course of antibiotics, Levaquin (not Cipro), to complete a 14-day course. Continue ASA until arthritis/ arthralgias resolves. No significant valvular pathology to warrant prophylaxis. (3) Hepatitis C antibody positive in blood Current Visit: Yes Status: Acute Plan to address problem: Pending HCV viral load to confirm chronic infection. (4) High risk sexual behavior Current Visit: Yes Status: Acute Plan to address problem: Pending GC/ chlamydia results. Subjective Date of service: 07/31/16 Interval history: Slow improvement of joint swelling, especially left wrist. Denies subjective fever, chills, pruritis or diarrhea. Objective - Constitutional Vitals: Vital Signs Temp Pulse Resp BP Pulse Ox 99.2 F 80 20 111/67 100 07/31/16 08:00 07/31/16 08:00 07/31/16 08:00 07/31/16 08:00 07/31/16 08:00 Temperature -Last 24 Hours Temperature 99.2 F Temperature 99.6 F Temperature 99.1 F Temperature 100.3 F Temperature 98.6 F Temperature 99.7 F General appearance: Present: no acute distress (pleasant young man) - EENT Eyes: no conjunctival injection ENT: clear oral mucosa - Respiratory Respiratory effort: normal Respiratory: bilateral: CTA, negative: wheezing - Cardiovascular Rhythm: regular Heart Sounds: Present: S1 & S2. Absent: systolic murmur Extremity abnormal: edema (decreased edema of bilateral wrist, knee and ankle joints with continued erythema and edema of left wrist/ hand, no crepitus, minimal increased warmth) - Gastrointestinal General gastrointestinal: Present: soft, non-distended - Integumentary Integumentary: clear, no rash - Psychiatric Psychiatric: appropriate mood/affect - Labs CBC & Chem 7: 07/30/16 08:44 07/30/16 10:51 Labs: Abnormal lab results 07/30/16 Range/Units 10:51 Carbon Dioxide 21 L (22-30) mmol/L Glucose 132 H (75-100) mg/dL Microbiology 07/28/16 00:42 Peripheral/Venous Blood Culture - Preliminary NO GROWTH AFTER 72 HOURS 07/27/16 11:46 Peripheral/Venous Blood Culture - Preliminary NO GROWTH AFTER 72 HOURS 07/26/16 13:30 Peripheral/Venous Blood Culture - Final Beta Hemolytic Strep Group A 07/26/16 13:51 Peripheral/Venous Blood Culture - Final Beta Hemolytic Strep Group A 07/26/16 17:47 Urine,Clean Catch Urine Culture - Final 07/26/16 18:46 Throat Group A Streptococcus Rapid Screen - Final 07/26/16 18:46 Throat Group A Strep Throat Culture - Final Active Medications Acetaminophen (Tylenol) 650 mg PO Q4H PRN PRN Reason: Pain MILD(1-3)/Fever >100.5/REINOSO Last Admin: 07/30/16 00:01 Dose: 650 mg Aspirin (Aspirin) 325 mg PO QDAY [facility] Last Admin: 07/30/16 11:13 Dose: 325 mg Bisacodyl (Dulcolax) 10 mg OH QDAY PRN PRN Reason: Constipation unrelieved by MOM Enoxaparin Sodium (Lovenox) 40 mg SUB-Q QDAY [facility] Last Admin: 07/30/16 11:00 Dose: 40 mg Dextrose/Sodium Chloride (D5ns) 1,000 mls @ 75 mls/hr IV DIRECT [facility] Last Admin: 07/31/16 04:15 Dose: 75 mls/hr Ceftriaxone Sodium (Rocephin/Ns 2 Gm/100 Ml) 2 gm in 100 mls @ 200 mls/hr IV Q24HR ADRIEN PRN Reason: Protocol Last Admin: 07/30/16 11:13 Dose: 200 mls/hr Gentamicin Sulfate 320 mg/ (Sodium Chloride) 108 mls @ 108 mls/hr IV Q24H ADRIEN Last Admin: 07/30/16 18:24 Dose: 108 mls/hr Magnesium Hydroxide (Milk Of Magnesia) 30 ml PO Q4H PRN PRN Reason: Constipation Last Admin: 07/28/16 16:46 Dose: 30 ml Ondansetron HCl (Zofran) 4 mg IV Q8H PRN PRN Reason: N/V unrelieved by Reglan Oxycodone/Acetaminophen (Percocet 5/325) 1 tab PO Q6H PRN PRN Reason: Pain, Moderate (4-6) Last Admin: 07/30/16 23:15 Dose: 1 tab
[2016-07-31] MEDS: ROCEPHIN/NS 2 GM/100 ML 2 GM/100 ML BAG IV SCH (10:44)
[2016-07-31] MEDS: LOVENOX SUB-Q SCH (10:46)
[2016-07-31] MEDS: ASPIRIN PO SCH (10:46)
[2016-07-31] MEDS: GARAMYCIN IV SCH (17:43)
[2016-07-31] MEDS: NACL 0.9% IV SCH (17:43)
[2016-08-01] MEDS: PERCOCET 5/325 PO PRN (04:22)
[2016-08-01] MEDS: D5NS 1,000 ML IV SCH (04:26)
[2016-08-01] MEDS: ROCEPHIN/NS 2 GM/100 ML 2 GM/100 ML BAG IV SCH (11:03)
[2016-08-01] MEDS: ASPIRIN PO SCH (11:03)
[2016-08-01] MEDS: LOVENOX SUB-Q SCH (11:04)
--- NOTE | 2016-08-01 12:14 | Discharge Summary ---
Providers - Providers Date of Admission: 07/26/16 18:30 Date of discharge: 08/01/16 Attending physician: CHERYLE SANDERS Primary care physician: BUFFET MANAGER Hospitalization Reason for admission: fever, joint painsof 3 days' duration Condition: Stable Pertinent studies: Chest x-ray; normal study Echocardiogram; left ventricular ejection fraction 40-45%, no vegetations Blood cultures; CT left hand; no acute abnormality noted Abdominal ultrasound; liver and biliary systems is essentially unremarkable medical renal disease trace ascites and right pleural effusion Blood cultures; 07/26/2016; 2:2 beta-hemolytic strep group A Blood cultures 07/28/2016 negative Urine cultures; negative Hospital course: Very pleasant 25-year-old -[place] male patient with no significant past medical history was admitted through emergency room fever joint pains and rash of 3 to 4 days duration Patient was initially evaluated, admitted to the hospital symptomatically managed empiric antibiotics Subsequently evaluation by ID, adjusted the antibiotics, cultures were positive for group a beta-hemolytic strep Echocardiogram is negative for any vegetations or evidence of endocarditis Patient's symptoms significantly improved Today's comfortable in bed relatively oriented 3 not in acute distress Vital signs reviewed stable, [id number] evaluation physical examination done by me prior to Discharge is unremarkable As detailed below Patient is hemodynamically and clinically stable for discharge and does not eat any further acute inpatient care at this time ID cleared the patient for discharge on Levaquin, stop date 08/10/2016 patient will follow up with primary care physician as well as ID within 1 week Final Diagnosis; Sepsis secondary to gram-positive bacteremia Hepatitis C positive status Rheumatic fever Febrile illness Left hand swelling/arthritis Disposition: DISCHARGED TO HOME OR SELFCARE Time spent for discharge: 32 min Core Measure Documentation - Palliative Care Palliative Care/ Comfort Measures: Not Applicable - Core Measures Any of the following diagnoses?: none Exam - Constitutional Vitals: Temp Pulse Resp BP Pulse Ox 98.6 F 65 15 106/62 100 08/01/16 07:30 08/01/16 07:30 08/01/16 07:30 08/01/16 07:30 08/01/16 07:30 General appearance: Present: no acute distress, well-nourished - EENT Eyes: Present: PERRL, EOM intact - Neck Neck: Present: supple, normal ROM - Respiratory Respiratory effort: normal Respiratory: negative: rales, rhonchi, wheezing - Cardiovascular Rhythm: regular Heart Sounds: Present: S1 & S2 - Extremities Extremities: no ischemia, pulses intact, pulses symmetrical, abnormal (left wrist swelling improved) Peripheral Pulses: within normal limits - Abdominal General gastrointestinal: Present: soft, non-tender, non-distended, normal bowel sounds - Integumentary Integumentary: Present: clear, warm - Musculoskeletal Musculoskeletal: strength equal bilaterally - Psychiatric Psychiatric: appropriate mood/affect, cooperative - Neurologic Neurologic: CNII-XII intact, moves all extremities Plan Activity: no restrictions Diet: regular Follow up with: PRIMARY CARE, [Primary Care Provider] - 3-5 Days HONG BARBOZA MD [Staff Physician] - 7 Days Prescriptions: Levofloxacin [Levaquin] 750 mg PO QDAY #10 tablet oxyCODONE /ACETAMINOPHEN [Percocet 5/325 mg] 1 tab PO TID PRN #15 tablet PRN Reason: Pain, Moderate (4-6)
[2016-08-01 15:21] VITALS: BP 96/69
== END 2016-08-01 17:00 | disposition home or self-care (01) | DRG 872 ==
LOC: ED 13:14 → 3A 18:30
PROVIDERS: ADMIT Internal Medicine; ATTEND Internal Medicine
PROC: 4A033R1 Measurement of Arterial Saturation, Peripheral, Percutaneous Approach (ICD-10-PCS; principal; 2016-07-26)
DX: A41.89 Other specified sepsis (principal); L03.818 Cellulitis of other sites; E87.1 Hypo-osmolality and hyponatremia; A54.42 Gonococcal arthritis; M25.50 Pain in unspecified joint; R46.89 Other symptoms and signs involving appearance and behavior; B19.20 Unspecified viral hepatitis C without hepatic coma; Z87.898 Personal history of other specified conditions
CPT/HCPCS: 36415; 71020; 76700; 80048; 80053; 81001; 83735; 85007; 85025; 86060; 86592; 86705; 86706; 86803; 87040; 87086; 87116; 87430; 87517; 87535; 87806; 87902; 93005; 93010; 93306; 96361; 96365; 96372; 96375; J0295; J0696; J1580; J1650; J1885; J2270; J2405; J2543; J3370; J7030; J7040; J7042; Q9967